=== PATIENT | female | born 1975 | race African-American/Black ===

== ENCOUNTER 2017-01-16 10:50 | Emergency (ER) | payer BC, MEDICAID, OTHER ==
--- NOTE | 2017-01-16 12:04 | ER Document Report ---
ED General - General Mode of Arrival: Ambulatory Information source: Patient TRAVEL OUTSIDE OF THE [place] IN LAST 30 DAYS: No - HPI Patient complains to provider of: "Feeling Funny" Onset: This morning Onset/Duration: Sudden, Persistent <JW PATHAK - Last Filed: 01/16/17 11:58> <TEODORAMITCHEL - Last Filed: 01/16/17 15:31> - General Chief Complaint: General Weakness Stated Complaint: HEADACHE Notes: Patient is a 41-year-old female presenting to the emergency department via EMS for chief complaint "not feeling well". Patient mumbles that she was getting ready for work, took her medications, put on her underwear and socks, and then "began feeling funny." When asked what she meant by feeling funny, she states, "everything began shutting down." Patient has a history of schizophrenia, bipolar disorder, and depression. She states she is being seen at [facility]. ( JW PATHAK) - Related Data Allergies/Adverse Reactions: amoxicillin [Amoxicillin] Allergy (Verified 08/11/16 18:15) Penicillins Allergy (Verified 08/11/16 18:15) Past Medical History - General Information source: Patient, [facility] Records - Social History Smoking Status: Unknown if Ever Smoked Family History: Reviewed & Not Pertinent - Past Medical History Cardiac Medical History: Reports: Hx Hypercholesterolemia Pulmonary Medical History: Reports: Hx Bronchitis Endocrine Medical History: Reports: Hx Hypothyroidism GI Medical History: Reports: Hx Irritable Bowel Musculoskeltal Medical History: Reports Hx Arthritis Psychiatric Medical History: Reports: Hx Bipolar Disorder, Hx Depression, Hx Schizophrenia Past Surgical History: Reports: Hx Tonsillectomy, Hx Tubal Ligation - Immunizations Immunizations up to date: No Hx Diphtheria, Pertussis, Tetanus Vaccination: No <JW PATHAK - Last Filed: 01/16/17 11:58> Review of Systems - Review of Systems Constitutional: See HPI, Other - "everything shutting down" "feel funny" EENT: No symptoms reported Cardiovascular: No symptoms reported Respiratory: No symptoms reported Gastrointestinal: No symptoms reported Genitourinary: No symptoms reported Female Genitourinary: No symptoms reported Musculoskeletal: No symptoms reported Skin: No symptoms reported Hematologic/Lymphatic: No symptoms reported Neurological/Psychological: No symptoms reported -: Yes All other systems reviewed and negative <JW PATHAK - Last Filed: 01/16/17 11:58> Physical Exam - General General appearance: Alert, Other - Trying to speak without opening her mouth. Mumbling. - HEENT Head: Normocephalic, Atraumatic Eyes: Normal Pupils: PERRL - Respiratory Respiratory status: No respiratory distress Chest status: Nontender Breath sounds: Normal Chest palpation: Normal - Cardiovascular Rhythm: Regular Heart sounds: Normal auscultation Murmur: No - Abdominal Inspection: Morbidly Obese Tenderness: Nontender - Back Back: Normal, Nontender - Extremities General upper extremity: Normal inspection, Nontender General lower extremity: Normal inspection, Nontender - Neurological Neuro grossly intact: Yes Cognition: Normal Orientation: AAOx4 [place] Coma Scale Eye Opening: Spontaneous [place] Coma Scale Verbal: Oriented Crist[place] Coma Scale Motor: Obeys Commands Cristo Coma Scale Total: 15 Speech: Normal - Psychological Associated symptoms: Normal affect, Normal mood - Skin Skin Temperature: Warm Skin Moisture: Dry Skin Color: Normal <JW PATHAK - Last Filed: 01/16/17 11:58> Course <JW PATHAK - Last Filed: 01/16/17 11:58> - Laboratory Result Diagrams: 01/16/17 12:30 01/16/17 12:30 <MITCHEL ARAIZA - Last Filed: 01/16/17 15:31> - Re-evaluation Re-evalutation: 01/16/17 15:22 The patient is now sitting up, looks well. She states she thinks she had a stroke because it's difficult to smile. Both sides of the face feel equally weak to her. She does have depression, bipolar disorder, schizophrenia, and her behavior today is consistent with her mental illness. There is nothing on physical exam to suggest it is anything other than a psychiatric issue, lab work is normal. She will be discharged home. (MITCHEL ARAIZA) - Vital Signs Vital signs: Temp Pulse Resp BP Pulse Ox 97.9 F 68 20 125/92 H 95 01/16/17 14:17 01/16/17 14:17 01/16/17 14:17 01/16/17 14:17 01/16/17 14:17 - Laboratory Laboratory results interpreted by me: 01/16/17 01/16/17 11:20 12:30 Est GFR (Non-Af Amer) 52 L Urine Blood LARGE H Discharge <JW PATHAK - Last Filed: 01/16/17 11:58> <MITCHEL ARAIZA - Last Filed: 01/16/17 15:31> - Discharge Clinical Impression: Weakness Condition: Stable Disposition: HOME, SELF-CARE Additional Instructions: Your perceived facial weakness is bilateral which is not possible in the setting of a stroke. Continue your regular medications. Drink plenty of fluids. Follow-up with your doctor if not improving. RETURN TO THE EMERGENCY ROOM IF ANY NEW OR WORSENING SYMPTOMS. Scribe Attestation: 01/16/17 15:31 I personally performed the services described in the documentation, reviewed and edited the documentation which was dictated to the scribe in my presence, and it accurately records my words and actions. (MITCHEL ARAIZA) Scribe Documentation - Scribe Written by Scribrachna:: Jw Pathak 01/16/2017 1159 acting as scribe for :: Teodora <JW PATHAK - Last Filed: 01/16/17 11:58>
[2017-01-16 12:10] LABS: APPEARANCE,URINE CLEAR; BILIRUBIN,URINE NEGATIVE (NEGATIVE); GLUCOSE, URINE NEGATIVE (NEGATIVE); KETONES,URINE NEGATIVE (NEGATIVE); LEUKOCYTE ESTERASE,URINE NEGATIVE (NEGATIVE); NITRITE,URINE NEGATIVE (NEGATIVE); PROTEIN,URINE NEGATIVE (NEGATIVE); URINE SPECIFIC GRAVITY 1.006; UROBILINOGEN,URINE NEGATIVE mg/dL (<2.0)
[2017-01-16 12:45] LABS: ABSOLUTE EOSINOPHILS # (AUTO) 0.1 10^3/uL (0.0-0.6); ABSOLUTE LYMPHOCYTES (AUTO) 1.8 10^3/uL (0.5-4.7); ABSOLUTE MONOCYTES (AUTO) 0.3 10^3/uL (0.1-1.4); ABSOLUTE NEUT (AUTO) 2.1 10^3/uL (1.7-8.2); BASOPHILS % (AUTO) 0.5 % (0-2); EOSINOPHILS % (AUTO) 2.9 % (0-6); HEMATOCRIT 37.6 % (36.0-47.0); HEMOGLOBIN 12.7 g/dL (12.0-15.5); HGB HCT DIFFERENCE 0.5; LYMPHOCYTES % (AUTO) 42.5 % (13-45); MEAN CORPUSCULAR HGB CONC 33.7 g/dL (32.0-36.0); MEAN CORPUSCULAR VOLUME 89 fl (80-97); MONOCYTES % (AUTO) 5.8 % (3-13); RED BLOOD COUNT 4.22 10^6/uL (3.72-5.28); RED CELL DISTRIBUTION WIDTH 13.2 % (11.5-14.0); SEGMENTED NEUTROPHILS % (AUTO) 48.3 % (42-78); WHITE BLOOD COUNT 4.3 10^3/uL (4.0-10.5)
[2017-01-16 13:06] LABS: ALANINE AMINOTRANSFERASE 27 U/L (9-52); ALKALINE PHOSPHATASE 76 U/L (38-126); ANION GAP 12 (5-19); ASPARTATE AMINO TRANSFERASE 29 U/L (14-36); BILIRUBIN,DIRECT 0.2 mg/dL (0.0-0.4); BILIRUBIN,TOTAL 0.6 mg/dL (0.2-1.3); BLOOD UREA NITROGEN 15 mg/dL (7-20); CALCIUM 9.7 mg/dL (8.4-10.2); CARBON DIOXIDE 26 mmol/L (22-30); CHLORIDE 104 mmol/L (98-107); CREATININE RESULT 1.15 mg/dL (0.52-1.25); GLUCOSE 84 mg/dL (75-110); POTASSIUM 4.4 mmol/L (3.6-5.0); SODIUM 142.3 mmol/L (137-145); TOTAL PROTEIN 7.2 g/dL (6.3-8.2)
[2017-01-16 15:42] VITALS: BP 132/75
== END 2017-01-16 15:43 | disposition home or self-care (01) ==
LOC: ER 10:50
DX: R53.1 Weakness (principal); R51 Headache; F20.9 Schizophrenia, unspecified; F31.9 Bipolar disorder, unspecified; F32.9 Major depressive disorder, single episode, unspecified
CPT/HCPCS: 36415; 80053; 81001; 84703; 85025; 99285

== ENCOUNTER 2017-06-24 09:19 | Emergency (ER) | payer BC, MEDICAID, OTHER ==
[2017-06-24 09:27] VITALS: BP 130/95
--- NOTE | 2017-06-24 09:56 | ER Document Report ---
ED Extremity Problem, Lower - General Chief Complaint: Knee Pain Stated Complaint: LEFT KNEE PAIN Time Seen by Provider: 06/24/17 09:34 Notes: 41 yo female c/o left knee pain x 1 1/2 weeks. . no trauma. knee started hurting while she was working. works in food industry. pt was evaluated at urgent care last week for same has ortho appointment 07/01/17 but pt doesnt feel like she can wait that long. difficulty to walk, using cane TRAVEL OUTSIDE OF THE [place] IN LAST 30 DAYS: No - HPI Patient complains to provider of: Pain Location: Knee - left Occurred: Last week Onset/Duration: Gradual, Persistent Quality of pain: Sharp Recent injury: No Exacerbated by: Movement, Walking Relieved by: Nothing - Related Data Allergies/Adverse Reactions: amoxicillin [Amoxicillin] Allergy (Verified 06/24/17 09:28) Penicillins Allergy (Verified 06/24/17 09:28) Past Medical History - General Information source: Patient - Social History Smoking Status: Never Smoker Frequency of alcohol use: None Drug Abuse: None Lives with: Family Family History: Reviewed & Not Pertinent Patient has suicidal ideation: No Patient has homicidal ideation: No - Past Medical History Cardiac Medical History: Reports: Hx Hypercholesterolemia Pulmonary Medical History: Reports: Hx Bronchitis Endocrine Medical History: Reports: Hx Hypothyroidism Renal/ Medical History: Denies: Hx Peritoneal Dialysis GI Medical History: Reports: Hx Irritable Bowel Musculoskeltal Medical History: Reports Hx Arthritis Psychiatric Medical History: Reports: Hx Bipolar Disorder, Hx Depression, Hx Schizophrenia Past Surgical History: Reports: Hx Tonsillectomy, Hx Tubal Ligation - Immunizations Immunizations up to date: No Hx Diphtheria, Pertussis, Tetanus Vaccination: No Review of Systems - Review of Systems Constitutional: No symptoms reported EENT: No symptoms reported Cardiovascular: No symptoms reported Respiratory: No symptoms reported Gastrointestinal: No symptoms reported Genitourinary: No symptoms reported Female Genitourinary: No symptoms reported Musculoskeletal: See HPI Skin: No symptoms reported Hematologic/Lymphatic: No symptoms reported Neurological/Psychological: No symptoms reported Physical Exam - Vital signs Vitals: Temp Pulse Resp BP Pulse Ox 97.6 F 81 22 H 130/95 H 98 06/24/17 09:26 06/24/17 09:26 06/24/17 09:26 06/24/17 09:26 09/06/17 09:26 Interpretation: Normal - General General appearance: Appears well, Alert In distress: None Notes: morbidly obese - HEENT Head: Normocephalic, Atraumatic Eyes: Normal Pupils: PERRL - Respiratory Respiratory status: No respiratory distress Chest status: Nontender Breath sounds: Normal Chest palpation: Normal - Cardiovascular Rhythm: Regular Heart sounds: Normal auscultation Murmur: No - Abdominal Inspection: Normal Distension: No distension Bowel sounds: Normal Tenderness: Nontender Organomegaly: No organomegaly - Back Back: Normal, Nontender - Extremities General upper extremity: Normal inspection, Nontender, Normal color, Normal ROM , Normal temperature Knee: Tender - infrapatellar tenderness, Tender joint line Calf: Normal - Neurological Neuro grossly intact: Yes Cognition: Normal Orientation: AAOx4 [place] Coma Scale Eye Opening: Spontaneous [place] Coma Scale Verbal: Oriented [place] Coma Scale Motor: Obeys Commands Crist[place] Coma Scale Total: 15 Speech: Normal Motor strength normal: LUE, RUE, LLE, RLE Sensory: Normal - Psychological Associated symptoms: Normal affect, Normal mood - Skin Skin Temperature: Warm Skin Moisture: Dry Skin Color: Normal Course - Vital Signs Vital signs: Temp Pulse Resp BP Pulse Ox 97.6 F 81 22 H 130/95 H 98 06/24/17 09:26 06/24/17 09:26 06/24/17 09:26 06/24/17 09:26 06/24/17 09:26 Discharge - Discharge Clinical Impression: Left knee pain Qualifiers: Chronicity: acute Qualified Code(s): M25.562 - Pain in left knee Condition: Stable Disposition: HOME, SELF-CARE Instructions: Ice & Elevation ([facility]), Suspected Internal Knee Injury ([facility]), Ultram ([facility]) Additional Instructions: Follow up with [facility] as scheduled Appointment made for 06/29/17 @ 10:15 Ultram for discomfort, Motrin for inflammation rest, ice, elevate knee as much as possible Prescriptions: Ibuprofen [Motrin 800 Mg Tablet] 800 mg PO Q6H #20 tablet Tramadol HCl [Ultram 50 mg Tablet] 50 mg PO ASDIR PRN #20 tablet PRN Reason:
== END 2017-06-24 10:11 | disposition home or self-care (01) ==
LOC: ER 09:19
DX: M25.562 Pain in left knee (principal)
CPT/HCPCS: 99283

== ENCOUNTER 2017-11-11 12:59 | Emergency (ER) | payer BC ==
--- NOTE | 2017-11-11 13:47 | ER Document Report ---
ED Medical Screen (RME) - General Chief Complaint: Suicidal Ideation Stated Complaint: SUICIDAL IDEATION Time Seen by Provider: 11/11/17 13:41 Mode of Arrival: Ambulatory Information source: Patient Notes: 42 yo female c/o that the male that she hears and doesn't see won't shut up. " He is too real", he tells me that he knows everything about me and that he wants my soul. Depakote 500mg am, 1000mg pm. Got monthly Invega shot on thursday at [facility] to try and control him. New Therapist at [facility], seen months ago, scheduled to see therapist next month. I started to cut my left wrist with a knife but stops because it was burning. Doesn't feel like she wants to hurt herself anymore at this time. Was hoping to bleed enough so she wouldn't have to go through with this. She was alone in her room for a while this am. Tried to slit wrists while she was in highschool. Works at [employer] at [employer]. Superficial scratch volar left wrist. Psycho affective dx. TRAVEL OUTSIDE OF THE [place] IN LAST 30 DAYS: No - Related Data Allergies/Adverse Reactions: amoxicillin [Amoxicillin] Allergy (Verified 06/24/17 09:28) Penicillins Allergy (Verified 06/24/17 09:28) Past Medical History - Past Medical History Cardiac Medical History: Reports: Hx Hypercholesterolemia Pulmonary Medical History: Reports: Hx Bronchitis Endocrine Medical History: Reports: Hx Hypothyroidism Renal/ Medical History: Denies: Hx Peritoneal Dialysis GI Medical History: Reports: Hx Irritable Bowel Musculoskeltal Medical History: Reports Hx Arthritis Psychiatric Medical History: Reports: Hx Bipolar Disorder, Hx Depression, Hx Schizophrenia Past Surgical History: Reports: Hx Tonsillectomy, Hx Tubal Ligation - Immunizations Immunizations up to date: No Hx Diphtheria, Pertussis, Tetanus Vaccination: No Physical Exam - Vital signs Vitals: Temp Pulse Resp BP Pulse Ox 98.9 F 90 16 133/90 H 100 11/11/17 13:11 11/11/17 13:11 11/11/17 13:11 11/11/17 13:11 11/11/17 13:11 Course - Vital Signs Vital signs: Temp Pulse Resp BP Pulse Ox 98.9 F 90 16 133/90 H 100 11/11/17 13:11 11/11/17 13:11 11/11/17 13:11 11/11/17 13:11 11/11/17 13:11
--- NOTE | 2017-11-11 14:23 | ER Document Report ---
ED General - General Chief Complaint: Suicidal Ideation Stated Complaint: SUICIDAL IDEATION Time Seen by Provider: 11/11/17 13:41 Mode of Arrival: Ambulatory Information source: Patient Notes: Patient presents stating that she has plans of wanting to hurt herself and that she attempted to cut her left wrist today. She also states she has been hearing some voices telling her that she is not worth anything. Stress makes this worse. It is better without stress. There is no radiation symptoms. Symptoms been intermittent. Patient has had multiple visits for similar problems in the past. TRAVEL OUTSIDE OF THE [place] IN LAST 30 DAYS: No - Related Data Allergies/Adverse Reactions: amoxicillin [Amoxicillin] Allergy (Verified 06/24/17 09:28) Penicillins Allergy (Verified 06/24/17 09:28) Past Medical History - General Information source: Patient - Social History Smoking Status: Current Every Day Smoker Frequency of alcohol use: Rare Drug Abuse: Marijuana Family History: Reviewed & Not Pertinent Patient has suicidal ideation: Yes Patient has homicidal ideation: No - Past Medical History Cardiac Medical History: Reports: Hx Hypercholesterolemia Pulmonary Medical History: Reports: Hx Bronchitis Endocrine Medical History: Reports: Hx Hypothyroidism Renal/ Medical History: Denies: Hx Peritoneal Dialysis GI Medical History: Reports: Hx Irritable Bowel Musculoskeltal Medical History: Reports Hx Arthritis Psychiatric Medical History: Reports: Hx Bipolar Disorder, Hx Depression, Hx Schizophrenia Past Surgical History: Reports: Hx Tonsillectomy, Hx Tubal Ligation - Immunizations Immunizations up to date: No Hx Diphtheria, Pertussis, Tetanus Vaccination: No Review of Systems - Review of Systems Constitutional: denies: Chills, Fever Cardiovascular: denies: Chest pain, Palpitations Respiratory: denies: Cough, Short of breath Physical Exam - Vital signs Vitals: Temp Pulse Resp BP Pulse Ox 98.9 F 90 16 133/90 H 100 11/11/17 13:11 11/11/17 13:11 11/11/17 13:11 11/11/17 13:11 11/11/17 13:11 Interpretation: Hypertensive - General General appearance: Appears well, Alert In distress: None - HEENT Head: Normocephalic, Atraumatic Eyes: Normal Pupils: PERRL - Respiratory Respiratory status: No respiratory distress Chest status: Nontender Breath sounds: Normal Chest palpation: Normal - Cardiovascular Rhythm: Regular Heart sounds: Normal auscultation Murmur: No - Extremities General upper extremity: Nontender. No: Edema - Patient's left wrist has a very mild abrasion on the volar aspect. General lower extremity: Normal inspection, Nontender, Normal ROM. No: Edema - Psychological Associated symptoms: Depressed, Flat affect - Skin Skin Temperature: Warm Skin Moisture: Dry Course - Re-evaluation Re-evalutation: 11/11/17 14:22 Patient was seen by Dr. Serrano from psychiatry. Dr. Serrano states that she does not feel that patient is suicidal or homicidal. She does not feel that the patient is a threat to herself. She feels the patient can be safely discharged home. After my assessment I agree with Dr. Serrano assessment I do not feel that the patient is a threat to herself or others. states that he is very comfortable taking the patient home. - Vital Signs Vital signs: Temp Pulse Resp BP Pulse Ox 98.9 F 90 16 133/90 H 100 11/11/17 13:11 11/11/17 13:11 11/11/17 13:11 11/11/17 13:11 11/11/17 13:11 Discharge - Discharge Clinical Impression: Depression Qualifiers: Depression Type: unspecified Qualified Code(s): F32.9 - Major depressive disorder, single episode, unspecified Condition: Stable Disposition: HOME, SELF-CARE Instructions: Depression ([facility]) Additional Instructions: please follow up with [facility] as soon as possible
[2017-11-11 14:28] VITALS: BP 128/85
== END 2017-11-11 14:24 | disposition home or self-care (01) ==
LOC: ER 12:59
DX: F32.9 Major depressive disorder, single episode, unspecified (principal); S61.512A Laceration without foreign body of left wrist, initial encounter; R44.0 Auditory hallucinations; F17.200 Nicotine dependence, unspecified, uncomplicated; X78.9XXA Intentional self-harm by unspecified sharp object, initial encounter
CPT/HCPCS: 99285

== ENCOUNTER 2018-12-29 09:58 | Emergency (ER) | payer BC, OTHER ==
--- NOTE | 2018-12-29 10:27 | ER Document Report ---
ED Medical Screen (RME) - General Chief Complaint: Psych Problem Stated Complaint: PSYCH EVAL Primary Care Provider: LAMIN BRADY MD [Primary Care Provider] - Follow up as needed TRAVEL OUTSIDE OF THE [place] IN LAST 30 DAYS: No - HPI Notes: 12/29/18 10:26 Patient has been of her psychiatric medication for the past 6 months. According to the this morning she woke up crying and has not stopped crying. Patient will not talk to me when I attempted to find out what is the problem. She is just tearful. Her states she has no suicidal or homicidal. - Related Data Allergies/Adverse Reactions: amoxicillin [Amoxicillin] Allergy (Verified 12/29/18 10:01) Penicillins Allergy (Verified 12/29/18 10:01) Past Medical History - Past Medical History Cardiac Medical History: Reports: Hx Hypercholesterolemia Pulmonary Medical History: Reports: Hx Bronchitis Endocrine Medical History: Reports: Hx Hypothyroidism Renal/ Medical History: Denies: Hx Peritoneal Dialysis GI Medical History: Reports: Hx Irritable Bowel Musculoskeltal Medical History: Reports Hx Arthritis Psychiatric Medical History: Reports: Hx Bipolar Disorder, Hx Depression, Hx Schizophrenia Past Surgical History: Reports: Hx Tonsillectomy, Hx Tubal Ligation - Immunizations Immunizations up to date: No Hx Diphtheria, Pertussis, Tetanus Vaccination: No Physical Exam - Vital signs Vitals: Temp Pulse Resp BP Pulse Ox 98.1 F 94 19 126/98 H 100 12/29/18 10:05 12/29/18 10:05 12/29/18 10:05 12/29/18 10:05 12/29/18 10:05 Course - Vital Signs Vital signs: Temp Pulse Resp BP Pulse Ox 98.1 F 94 19 126/98 H 100 12/29/18 10:05 12/29/18 10:05 12/29/18 10:05 12/29/18 10:05 12/29/18 10:05 Doctor's Discharge - Discharge Referrals: LAMIN BRADY MD [Primary Care Provider] - Follow up as needed
[2018-12-29 12:33] LABS: ABSOLUTE BASOPHILS # (AUTO) 0.1 10^3/uL (0.0-0.2); ABSOLUTE EOSINOPHILS # (AUTO) 0.4 10^3/uL (0.0-0.6); ABSOLUTE LYMPHOCYTES (AUTO) 1.8 10^3/uL (0.5-4.7); ABSOLUTE MONOCYTES (AUTO) 0.3 10^3/uL (0.1-1.4); ABSOLUTE NEUT (AUTO) 2.8 10^3/uL (1.7-8.2); HEMOGLOBIN 14.1 g/dL (12.0-15.5); LYMPHOCYTES % (AUTO) 33.3 % (13-45); MEAN CORPUSCULAR HEMOGLOBIN 31.1 pg (27.0-33.4); MEAN CORPUSCULAR HGB CONC 34.4 g/dL (32.0-36.0); MEAN CORPUSCULAR VOLUME 90 fl (80-97); PLATELET COUNT 198 10^3/uL (150-450); RED BLOOD COUNT 4.54 10^6/uL (3.72-5.28); RED CELL DISTRIBUTION WIDTH 14.6 % (11.5-14.0); SEGMENTED NEUTROPHILS % (AUTO) 52.7 % (42-78); TOTAL CELLS COUNTED % (AUTO) 100 %; WHITE BLOOD COUNT 5.4 10^3/uL (4.0-10.5)
[2018-12-29 12:53] LABS: ALANINE AMINOTRANSFERASE 27 U/L (9-52); ALBUMIN 4.4 g/dL (3.5-5.0); ALKALINE PHOSPHATASE 96 U/L (38-126); ANION GAP 11 (5-19); ASPARTATE AMINO TRANSFERASE 26 U/L (14-36); BILIRUBIN,DIRECT 0.4 mg/dL (0.0-0.4); BILIRUBIN,TOTAL 0.7 mg/dL (0.2-1.3); BLOOD UREA NITROGEN 10 mg/dL (7-20); CALCIUM 9.8 mg/dL (8.4-10.2); CARBON DIOXIDE 24 mmol/L (22-30); CHLORIDE 104 mmol/L (98-107); GLUCOSE 99 mg/dL (75-110); POTASSIUM 4.1 mmol/L (3.6-5.0); SODIUM 138.9 mmol/L (137-145); TOTAL PROTEIN 7.5 g/dL (6.3-8.2)
[2018-12-29 12:58] LABS: ACETAMINOPHEN < 10 ug/mL (10-30); ALCOHOL < 10 mg/dL (NONE DETECTED); SALICYLATE < 1.0 mg/dL (2.0-20.0)
--- NOTE | 2018-12-29 13:16 | EKG REPORT ---
SEVERITY:- ABNORMAL ECG - SINUS RHYTHM BORDERLINE R WAVE PROGRESSION, ANTERIOR LEADS ST ELEVATION NONSPECIFIC, UNCHANGED FROM BEFORE. : Confirmed by: Lan Dunlap MD 29-Dec-2018 13:16:15
[2018-12-29 13:29] LABS: APPEARANCE,URINE SLIGHTLY-CLOUDY; BILIRUBIN,URINE NEGATIVE (NEGATIVE); COLOR,URINE YELLOW; GLUCOSE, URINE NEGATIVE (NEGATIVE); KETONES,URINE NEGATIVE (NEGATIVE); LEUKOCYTE ESTERASE,URINE NEGATIVE (NEGATIVE); NITRITE,URINE NEGATIVE (NEGATIVE); PROTEIN,URINE NEGATIVE (NEGATIVE); URINE SPECIFIC GRAVITY 1.013; UROBILINOGEN,URINE NEGATIVE mg/dL (<2.0)
[2018-12-29 13:52] LABS: URINE AMPHETAMINES SCREEN NEGATIVE; URINE BARBITURATES SCREEN NEGATIVE; URINE BENZODIAZEPINES SCREEN NEGATIVE; URINE COCAINE SCREEN NEGATIVE; URINE MARIJUANA (THC) SCREEN NEGATIVE; URINE METHADONE SCREEN NEGATIVE; URINE PHENCYCLIDINE SCREEN NEGATIVE
--- NOTE | 2018-12-29 13:52 | ER Document Report ---
ED General <YAQUELIN ALEMAN - Last Filed: 12/29/18 14:05> - General TRAVEL OUTSIDE OF THE [place] IN LAST 30 DAYS: No - HPI Patient complains to provider of: Psych evaluation <CAROLA STROUD - Last Filed: 12/29/18 14:50> - General Chief Complaint: Psych Problem Stated Complaint: PSYCH EVAL Time Seen by Provider: 12/29/18 10:46 Primary Care Provider: [facility] [Provider Group] - Follow up as needed [facility] [Provider Group] - Follow up as needed LAMIN BRADY MD [ACTIVE STAFF] - Follow up as needed - HPI Notes: Patient coming in for evaluation of psych evaluation. Patient otherwise nonverbal with me only holding her head down. According to the nursing staff patient states she has had ideation and hallucinations for the last 6 months. Patient otherwise is to be no obvious distress. My [employer] review (CAROLA STROUD) - Related Data Allergies/Adverse Reactions: amoxicillin [Amoxicillin] Allergy (Verified 12/29/18 10:01) Penicillins Allergy (Verified 12/29/18 10:01) Past Medical History - Social History Smoking Status: Unknown if Ever Smoked Family History: Reviewed & Not Pertinent Patient has suicidal ideation: Yes Patient has homicidal ideation: No - Past Medical History Cardiac Medical History: Reports: Hx Hypercholesterolemia Pulmonary Medical History: Reports: Hx Bronchitis Endocrine Medical History: Reports: Hx Hypothyroidism Renal/ Medical History: Denies: Hx Peritoneal Dialysis GI Medical History: Reports: Hx Irritable Bowel Musculoskeletal Medical History: Reports Hx Arthritis Psychiatric Medical History: Reports: Hx Bipolar Disorder, Hx Depression, Hx Schizophrenia Past Surgical History: Reports: Hx Tonsillectomy, Hx Tubal Ligation - Immunizations Immunizations up to date: No Hx Diphtheria, Pertussis, Tetanus Vaccination: No <CAROLA STROUD - Last Filed: 12/29/18 14:50> Review of Systems - Review of Systems Constitutional: No symptoms reported EENT: No symptoms reported Cardiovascular: No symptoms reported Respiratory: No symptoms reported Gastrointestinal: No symptoms reported Genitourinary: No symptoms reported Female Genitourinary: No symptoms reported Musculoskeletal: No symptoms reported Skin: No symptoms reported Hematologic/Lymphatic: No symptoms reported Neurological/Psychological: Suicidal ideation -: Yes All other systems reviewed and negative <CAROLA STROUD - Last Filed: 12/29/18 14:50> Physical Exam - Vital signs Interpretation: Normal - General General appearance: Appears well, Alert - HEENT Head: Normocephalic, Atraumatic Eyes: Normal Pupils: PERRL - Respiratory Respiratory status: No respiratory distress Chest status: Nontender Breath sounds: Normal Chest palpation: Normal - Cardiovascular Rhythm: Regular Heart sounds: Normal auscultation Murmur: No - Abdominal Inspection: Normal, Obese Distension: No distension Bowel sounds: Normal Tenderness: Nontender Organomegaly: No organomegaly - Back Back: Normal, Nontender - Extremities General upper extremity: Normal inspection, Nontender, Normal color, Normal ROM, Normal temperature General lower extremity: Normal inspection, Nontender, Normal color, Normal ROM, Normal temperature, Normal weight bearing. No: Shantel's sign - Neurological Neuro grossly intact: Yes Cognition: Normal Orientation: AAOx4 Cristo Coma Scale Eye Opening: Spontaneous Crisot Coma Scale Verbal: Oriented Cristo Coma Scale Motor: Obeys Commands Sutherland Coma Scale Total: 15 Speech: Normal Motor strength normal: LUE, RUE, LLE, RLE Sensory: Normal - Psychological Associated symptoms: Normal affect, Normal mood - Skin Skin Temperature: Warm Skin Moisture: Dry Skin Color: Normal <CAROLA STROUD - Last Filed: 12/29/18 14:50> - Vital signs Vitals: Temp Pulse Resp BP Pulse Ox 98.1 F 94 19 126/98 H 100 12/29/18 10:05 12/29/18 10:05 12/29/18 10:05 12/29/18 10:05 12/29/18 10:05 Course - Laboratory Result Diagrams: 12/29/18 12:18 12/29/18 12:18 <YAQUELIN ALEMAN - Last Filed: 12/29/18 14:05> - Laboratory Result Diagrams: 12/29/18 12:18 12/29/18 12:18 <CAROLA STROUD - Last Filed: 12/29/18 14:50> - Re-evaluation Re-evalutation: 12/29/18 14:50 Agree with disposition by our psychiatric team to be discharged. Patient with chronic issues and noncompliance with medications no acute issues at this time. Patient discharged home. (CAROLA STROUD) - Vital Signs Vital signs: Temp Pulse Resp BP Pulse Ox 98.3 F 77 16 120/74 99 12/29/18 14:10 12/29/18 14:10 12/29/18 14:10 12/29/18 14:10 12/29/18 14:10 - Laboratory Laboratory results interpreted by me: 12/29/18 12/29/18 12/29/18 12:18 12:18 12:18 RDW 14.6 H Eosinophils % 7.0 H Est GFR (Non-Af Amer) 57 L TSH 5.21 H Salicylates < 1.0 L Acetaminophen < 10 L Valproic Acid < 10.0 L Discharge <LOVESHELLIYAQUELIN - Last Filed: 12/29/18 14:05> <CAROLA STROUD - Last Filed: 12/29/18 14:50> - Discharge Clinical Impression: Non compliance w medication regimen Condition: Stable Disposition: HOME, SELF-CARE Additional Instructions: You have been evaluated and assessed at [facility] Emergency Department by both the medical and behavioral health teams after presenting for suicidal ideation and medication non-compliance and are now deemed appropriate for discharge. While in the ED, you received an initial medical screening, lab work, EKG, medications, direct staff observation, clinical evaluation, physician assessment, and outpatient resources. You were cleared from both services and record review revealed a history of similar visits. Mobile crisis resources were provided to you for when these situations arise. You are encouraged to develop positive coping skills through outpatient counseling and to follow up with your outpatient mental health provider at [facility] today for a walk in appointment and maintain compliance with your prescribed medication. DEPRESSION: Your evaluation reveals that you have mental depression. While symptoms may be vague, they often include disturbance of sleep, fatigue, loss of appetite, and general loss of interest in life. While depression may be a side effect of drugs, or a reaction to a major change in your life, many cases have no known cause. If depression is acute, and related to a major loss in your life, you can expect it to clear completely with time. If you have been depressed a long time, are prone to repeated bouts of depression or low mood, or have been thinking of suicide, get help. Depression can be treated with anti-depressant medication and counselling. Long-term depression will often take a few weeks to clear, even with appropriate medication. Follow-up care is important. SUICIDAL IDEATION: Suicidal ideation is a common medical term for thoughts about suicide, which may be as detailed as a formulated plan, without the suicidal act itself. Although most people who undergo suicidal ideation do not commit suicide, some go on to make suicide attempts. The range of suicidal ideation varies greatly from fleeting to detailed planning, role playing, and unsuccessful attempts. While thoughts about suicide are common, most people do not carry out serious actions to commit suicide. Based upon your evaluation and discussion with you, we do not believe you are currently at risk to act upon your thoughts of suicide. You have agreed to return to the Emergency Department, at any time, if you feel inclined to act upon your suicidal thoughts. FOLLOW-UP CARE: If you have been referred to a physician for follow-up care, call the [facility] office for an appointment as you were instructed or within the next two days. If you experience worsening or a significant change in your symptoms, notify the physician immediately or return to the Emergency Department at any time for re-evaluation. Referrals: LAMIN BRADY MD [ACTIVE STAFF] - Follow up as needed [facility] [Provider Group] - Follow up as needed [facility] [Provider Group] - Follow up as needed
[2018-12-29 14:12] VITALS: BP 120/74
--- NOTE | 2018-12-31 18:14 | PSYCHOLOGICAL NOTE ---
Psych Note - Psych Note Date seen by psych provider: 12/29/18 Time seen by psych provider: 11:00 Psych Note: Reason for consult:SI, HI, AV/H Contact Permissions:Mother and at bedside Patient is a 43 year old female presenting to the ED with concerns of sx break through i.e. SI, HI and AV/H for schizophrenia. Chart review shows prior psych visits going back to 2011 for Schizoaffective Disorder and SI. Patient has a hx of medication non-compliance. She reports that she has been off her medication for 6 months and "self-medicated". Though she endorses AV/H with "none now", her primary concern is SI she has been "fighting for the last 6 months. Protective factors are "responsibilities, I've got two kids a , I drive, and a job. I don't want to lose my job. I like it it makes me feel normal/I get to fix myself up". 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 She relays today's trigger for seeking help is anxiety for her son who is in the and [place]. She hasn't heard from him today. Patient is alert and oriented x 4. Mood is "poor" with labile affect aeb she rocks back and forth and keeps her eyes closed when Clinician is not looking at her but opens her eyes and maintains eye contact with her mother, stops rocking and brightens when discussing her job. Patient endorses passive SI "I've been fighting it for the last 6 months" and denies HI. She endorses AV/H but does not appear to be responding to internal stimuli aeb conversational speech was WNL for rate, tone, and prosody, eye contact was maintained when patient chose to open her eyes, thought processes were linear, organized, and rational and attention/concentration was WNL. No delusions were noted. Intellectual abilities were estimated within the average range. Insight, judgment, and impulse control were impaired. Diagnosis: 295.70 (F25.1) Schizoaffective Disorder, per hx Medication recommendations as per psychiatric provider, Dr. Rivera are as follows: No medication recommendations at this time Impression/Plan: Patient is psychiatrically clear from acute psychiatric services and recommended to discharge into the care of her mother and . Patient is a 43 yo female with Schizoaffective Disorder who has increased anxiety today related to her son's deployment and has been medication non-compliant for some time. Plan is to follow up today as a walk in patient at [facility] for medication management. [facility] confirmed that patient was a prior patient there and alerted them that patient would be presenting there today. Patient, , and mother verbalized their endorsement and follow through with the plan. Patient received psychoeducation on the importance of treatment compliance and is recommended to take her medication as prescribed. and mother will provide additional monitoring and support. The family received psychoeducation and contact information for [facility]. Consulted Dr. Serrano in the care and treatment of this patient and ED physician who is in agreement with disposition and recommendation.
== END 2018-12-29 14:24 | disposition home or self-care (01) ==
LOC: ER 09:58
DX: Z91.14 Patient's other noncompliance with medication regimen (principal); F25.9 Schizoaffective disorder, unspecified; R45.851 Suicidal ideations; Z88.0 Allergy status to penicillin
CPT/HCPCS: 36415; 80053; 80164; 80307; 81001; 81025; 84443; 85025; 93005; 93010; 99284

== ENCOUNTER → 2019-02-02 | Outpatient (CLI) | payer OTHER ==
[2019-02-02 12:29] LABS: ABSOLUTE EOSINOPHILS # (AUTO) 0.1 10^3/uL (0.0-0.6); ABSOLUTE LYMPHOCYTES (AUTO) 1.5 10^3/uL (0.5-4.7); ABSOLUTE MONOCYTES (AUTO) 0.3 10^3/uL (0.1-1.4); ABSOLUTE NEUT (AUTO) 1.7 10^3/uL (1.7-8.2); BASOPHILS % (AUTO) 0.3 % (0-2); EOSINOPHILS % (AUTO) 3.4 % (0-6); HEMATOCRIT 36.5 % (36.0-47.0); HEMOGLOBIN 12.2 g/dL (12.0-15.5); LYMPHOCYTES % (AUTO) 41.8 % (13-45); MEAN CORPUSCULAR HEMOGLOBIN 30.2 pg (27.0-33.4); MEAN CORPUSCULAR HGB CONC 33.3 g/dL (32.0-36.0); MEAN CORPUSCULAR VOLUME 91 fl (80-97); MONOCYTES % (AUTO) 7.4 % (3-13); PLATELET COUNT 169 10^3/uL (150-450); RED BLOOD COUNT 4.03 10^6/uL (3.72-5.28); SEGMENTED NEUTROPHILS % (AUTO) 47.1 % (42-78); TOTAL CELLS COUNTED % (AUTO) 100 %; WHITE BLOOD COUNT 3.6 10^3/uL (4.0-10.5)
[2019-02-02 13:05] LABS: ALANINE AMINOTRANSFERASE 36 U/L (9-52); ALBUMIN 3.8 g/dL (3.5-5.0); ALKALINE PHOSPHATASE 72 U/L (38-126); ANION GAP 9 (5-19); ASPARTATE AMINO TRANSFERASE 35 U/L (14-36); BILIRUBIN,DIRECT 0.3 mg/dL (0.0-0.4); BILIRUBIN,TOTAL 0.7 mg/dL (0.2-1.3); BLOOD UREA NITROGEN 13 mg/dL (7-20); CALCIUM 9.2 mg/dL (8.4-10.2); CARBON DIOXIDE 26 mmol/L (22-30); CHLORIDE 105 mmol/L (98-107); CHOLESTEROL 221.18 mg/dL (0-200); GLUCOSE 72 mg/dL (75-110); POTASSIUM 4.1 mmol/L (3.6-5.0); SODIUM 140.4 mmol/L (137-145); TOTAL PROTEIN 6.9 g/dL (6.3-8.2); TRIGLYCERIDES 86 mg/dL (<150)
[2019-02-02 13:27] LABS: DIRECT LDL 163 mg/dL (<100)
== END ==
LOC: OD 10:54
PROVIDERS: ATTEND Psychiatry & Neurology Psychiatry
DX: F25.0 Schizoaffective disorder, bipolar type (principal)
CPT/HCPCS: 36415; 80053; 80061; 84443; 85025

== ENCOUNTER 2019-04-08 15:54 | Emergency (ER) | payer OTHER ==
--- NOTE | 2019-04-08 16:21 | ER Document Report ---
ED Medical Screen (RME) - General Chief Complaint: Suicidal Ideation Stated Complaint: PSYCH EVAL Time Seen by Provider: 04/08/19 16:16 Primary Care Provider: CHAPO FORD MD [Primary Care Provider] - Follow up as needed Mode of Arrival: Ambulatory Information source: Patient Notes: Patient presents complaining of suicidal ideation. Patient reports she has a hi story of schizoaffective disorder and has been compliant with her medications. Patient also reports auditory hallucinations. I have greeted and performed a rapid initial assessment of this patient. A comprehensive ED assessment and evaluation of the patient, analysis of test results and completion of the medical decision making process will be conducted by additional ED providers. TRAVEL OUTSIDE OF THE [place] IN LAST 30 DAYS: No - Related Data Allergies/Adverse Reactions: amoxicillin [Amoxicillin] Allergy (Verified 12/29/18 10:01) Penicillins Allergy (Verified 12/29/18 10:01) Past Medical History - Past Medical History Cardiac Medical History: Reports: Hx Hypercholesterolemia Pulmonary Medical History: Reports: Hx Bronchitis Endocrine Medical History: Reports: Hx Hypothyroidism Renal/ Medical History: Denies: Hx Peritoneal Dialysis GI Medical History: Reports: Hx Irritable Bowel Musculoskeltal Medical History: Reports Hx Arthritis Psychiatric Medical History: Reports: Hx Bipolar Disorder, Hx Depression, Hx Schizophrenia Past Surgical History: Reports: Hx Tonsillectomy, Hx Tubal Ligation - Immunizations Immunizations up to date: No Hx Diphtheria, Pertussis, Tetanus Vaccination: No Physical Exam - Vital signs Vitals: Temp Pulse Resp BP Pulse Ox 99 F 103 H 20 148/94 H 97 04/08/19 16:02 04/08/19 16:02 04/08/19 16:02 04/08/19 16:02 04/08/19 16:02 - Psychological Associated symptoms: Auditory hallucinations, Flat affect Course - Vital Signs Vital signs: Temp Pulse Resp BP Pulse Ox 99 F 103 H 20 148/94 H 97 04/08/19 16:02 04/08/19 16:02 04/08/19 16:02 04/08/19 16:02 04/08/19 16:02 Doctor's Discharge - Discharge Referrals: CHAPO FORD MD [Primary Care Provider] - Follow up as needed
[2019-04-08 18:29] LABS: ABSOLUTE EOSINOPHILS # (AUTO) 0.2 10^3/uL (0.0-0.6); ABSOLUTE LYMPHOCYTES (AUTO) 2.2 10^3/uL (0.5-4.7); ABSOLUTE MONOCYTES (AUTO) 0.5 10^3/uL (0.1-1.4); BASOPHILS % (AUTO) 0.2 % (0-2); EOSINOPHILS % (AUTO) 2.9 % (0-6); HEMATOCRIT 38.5 % (36.0-47.0); LYMPHOCYTES % (AUTO) 37.8 % (13-45); MEAN CORPUSCULAR HEMOGLOBIN 30.5 pg (27.0-33.4); MEAN CORPUSCULAR HGB CONC 33.7 g/dL (32.0-36.0); MEAN CORPUSCULAR VOLUME 91 fl (80-97); MONOCYTES % (AUTO) 7.8 % (3-13); PLATELET COUNT 220 10^3/uL (150-450); RED BLOOD COUNT 4.25 10^6/uL (3.72-5.28); RED CELL DISTRIBUTION WIDTH 13.9 % (11.5-14.0); SEGMENTED NEUTROPHILS % (AUTO) 51.3 % (42-78); TOTAL CELLS COUNTED % (AUTO) 100 %; WHITE BLOOD COUNT 5.9 10^3/uL (4.0-10.5)
[2019-04-08 18:32] LABS: ACETAMINOPHEN < 10 ug/mL (10-30); ALANINE AMINOTRANSFERASE 38 U/L (9-52); ALBUMIN 4.3 g/dL (3.5-5.0); ALCOHOL < 10 mg/dL (NONE DETECTED); ALKALINE PHOSPHATASE 83 U/L (38-126); ANION GAP 7 (5-19); ASPARTATE AMINO TRANSFERASE 34 U/L (14-36); BILIRUBIN,DIRECT 0.2 mg/dL (0.0-0.4); BILIRUBIN,TOTAL 0.4 mg/dL (0.2-1.3); BLOOD UREA NITROGEN 8 mg/dL (7-20); CALCIUM 9.4 mg/dL (8.4-10.2); CARBON DIOXIDE 28 mmol/L (22-30); CHLORIDE 104 mmol/L (98-107); GLUCOSE 95 mg/dL (75-110); POTASSIUM 4.2 mmol/L (3.6-5.0); SALICYLATE < 1.0 mg/dL (2.0-20.0); SODIUM 139.3 mmol/L (137-145); TOTAL PROTEIN 7.5 g/dL (6.3-8.2)
[2019-04-08 18:56] LABS: APPEARANCE,URINE SLIGHTLY-CLOUDY; BILIRUBIN,URINE NEGATIVE (NEGATIVE); COLOR,URINE YELLOW; GLUCOSE, URINE NEGATIVE (NEGATIVE); KETONES,URINE NEGATIVE (NEGATIVE); LEUKOCYTE ESTERASE,URINE NEGATIVE (NEGATIVE); NITRITE,URINE NEGATIVE (NEGATIVE); PROTEIN,URINE 30 mg/dL (NEGATIVE); URINE SPECIFIC GRAVITY 1.015
[2019-04-08 19:10] LABS: URINE AMPHETAMINES SCREEN NEGATIVE; URINE BARBITURATES SCREEN NEGATIVE; URINE BENZODIAZEPINES SCREEN NEGATIVE; URINE COCAINE SCREEN NEGATIVE; URINE MARIJUANA (THC) SCREEN NEGATIVE; URINE METHADONE SCREEN NEGATIVE; URINE PHENCYCLIDINE SCREEN NEGATIVE
[2019-04-08] MEDS ORDERED: DIAZEPAM 5 MG TABLET PO ONE ×2 (19:15→22:15)
--- NOTE | 2019-04-08 19:20 | EKG REPORT ---
SEVERITY:- NORMAL ECG - SINUS RHYTHM : Confirmed by: Gely White MD 08-Apr-2019 19:19:24
--- NOTE | 2019-04-08 19:20 | ER Document Report ---
Addendum entered and electronically signed by CLIFF GREEN MD 04/09/19 16:30: Discharge - Discharge Clinical Impression: Suicidal ideation Schizoaffective disorder Qualifiers: Schizoaffective disorder type: unspecified Qualified Code(s): F25.9 - Schizoaffective disorder, unspecified Condition: Stable Disposition: HOME, SELF-CARE Additional Instructions: If you experience worsening or a significant change in your symptoms, notify the physician immediately or return to the Emergency Department at any time for re- evaluation. You have been evaluated both medical and behavioral health teams and been deemed appropriate for discharge. You are recommended to decrease your psychiatric medication to your previous dosage of risperidone 2 mg twice daily until you can get in to an appointment to see your provider. DEPRESSION: Your evaluation reveals that you have mental depression. While symptoms may be vague, they often include disturbance of sleep, fatigue, loss of appetite, and general loss of interest in life. While depression may be a side effect of drugs, or a reaction to a major change in your life, many cases have no known cause. If depression is acute, and related to a major loss in your life, you can expect it to clear completely with time. If you have been depressed a long time, are prone to repeated bouts of depression or low mood, or have been thinking of suicide, get help. Depression can be treated with anti-depressant medication and counselling. Long-term depression will often take a few weeks to clear, even with appropriate medication. Follow-up care is important. SUICIDAL IDEATION: Suicidal ideation is a common medical term for thoughts about suicide, which may be as detailed as a formulated plan, without the suicidal act itself. Although most people who undergo suicidal ideation do not commit suicide, some go on to make suicide attempts. The range of suicidal ideation varies greatly f rom fleeting to detailed planning, role playing, and unsuccessful attempts. While thoughts about suicide are common, most people do not carry out serious actions to commit suicide. Based upon your evaluation and discussion with you, we do not believe you are currently at risk to act upon your thoughts of suicide. You have agreed to return to the Emergency Department, at any time, if you feel inclined to act upon your suicidal thoughts. FOLLOW-UP CARE: If you have been referred to a physician for follow-up care, call the physicians office for an appointment as you were instructed or within the next two days. Referrals: CHAPO FORD MD [Primary Care Provider] - Follow up as needed Addendum entered and electronically signed by SOBIA CASAS LCSWA 04/09/19 16:03: Discharge - Discharge Clinical Impression: Suicidal ideation Schizoaffective disorder Qualifiers: Schizoaffective disorder type: unspecified Qualified Code(s): F25.9 - Schizoaffective disorder, unspecified Condition: Stable Disposition: HOME, SELF-CARE Additional Instructions: You have been evaluated both medical and behavioral health teams and been deemed appropriate for discharge. You are recommended to decrease your psychiatric me dication to your previous dosage of risperidone 2 mg twice daily until you can get in to an appointment to see your provider. DEPRESSION: Your evaluation reveals that you have mental depression. While symptoms may be vague, they often include disturbance of sleep, fatigue, loss of appetite, an d general loss of interest in life. While depression may be a side effect of drugs, or a reaction to a major change in your life, many cases have no known cause. If depression is acute, and related to a major loss in your life, you can expect it to clear completely with time. If you have been depressed a long time, are prone to repeated bouts of depression or low mood, or have been thinking of suicide, get help. Depression can be treated with anti-depressant medication and counselling. Long-term depression will often take a few weeks to clear, even with appropriate medication. Follow-up care is important. SUICIDAL IDEATION: Suicidal ideation is a common medical term for thoughts about suicide, which may be as detailed as a formulated plan, without the suicidal act itself. Although most people who undergo suicidal ideation do not commit suicide, some go on to make suicide attempts. The range of suicidal ideation varies greatly from fleeting to detailed planning, role playing, and unsuccessful attempts. While thoughts about suicide are common, most people do not carry out serious actions to commit suicide. Based upon your evaluation and discussion with you, we do not believe you are currently at risk to act upon your thoughts of suicide. You have agreed to return to the Emergency Department, at any time, if you feel inclined to act upon your suicidal thoughts. FOLLOW-UP CARE: If you have been referred to a physician for follow-up care, call the ysicians office for an appointment as you were instructed or within the next two days. If you experience worsening or a significant change in your symptoms, notify the physician immediately or return to the Emergency Department at any time for re-evaluation. Referrals: CHAPO FORD MD [Primary Care Provider] - Follow up as needed Original Note: ED General - General Chief Complaint: Suicidal Ideation Stated Complaint: PSYCH EVAL Time Seen by Provider: 04/08/19 16:16 Primary Care Provider: CHAPO FORD MD [Primary Care Provider] - Follow up as needed Mode of Arrival: Ambulatory Notes: Patient is a 43-year-old female with past medical history of schizoaffective disorder who presents stating "I feel like I want to tear something apart". The patient reports that for the past several weeks she has had increasing auditory hallucinations, depression and thoughts of suicidality. States that she had a plan to crash her car intentionally today to kill herself with only and that stopped her was her being in the vehicle. The patient is taking risperidone 4 mg daily, states she is been compliant with her medications but does not feel like it is helping. She follows at [facility] for her mental health care. She denies any acute physical complaints. She does state that her face "does not feel like mine". Nothing seems to improve or worsen her symptoms. She states that she has had similar symptoms in the past with the exception of her face feeling abnormal. Regards her symptoms as being severe, constant. TRAVEL OUTSIDE OF THE [place] IN LAST 30 DAYS: No - Related Data Allergies/Adverse Reactions: amoxicillin [Amoxicillin] Allergy (Verified 12/29/18 10:01) Penicillins Allergy (Verified 12/29/18 10:01) Past Medical History - General Information source: Patient - Social History Smoking Status: Former Smoker Chew tobacco use (# tins/day): No Frequency of alcohol use: None Drug Abuse: None Lives with: Spouse/Significant other Family History: Reviewed & Not Pertinent Patient has suicidal ideation: Yes Patient has homicidal ideation: No - Past Medical History Cardiac Medical History: Reports: Hx Hypercholesterolemia Pulmonary Medical History: Reports: Hx Bronchitis Endocrine Medical History: Reports: Hx Hypothyroidism Renal/ Medical History: Denies: Hx Peritoneal Dialysis GI Medical History: Reports: Hx Irritable Bowel Musculoskeletal Medical History: Reports Hx Arthritis Psychiatric Medical History: Reports: Hx Bipolar Disorder, Hx Depression, Hx Schizophrenia Past Surgical History: Reports: Hx Tonsillectomy, Hx Tubal Ligation - Immunizations Immunizations up to date: No Hx Diphtheria, Pertussis, Tetanus Vaccination: No Review of Systems - Review of Systems Notes: Constitutional: Negative for fever. HENT: Negative for sore throat. Eyes: Negative for visual changes. Cardiovascular: Negative for chest pain. Respiratory: Negative for shortness of breath. Gastrointestinal: Negative for abdominal pain, vomiting or diarrhea. Genitourinary: Negative for dysuria. Musculoskeletal: Negative for back pain. Skin: Negative for rash. Neurological: Negative for headaches, weakness or numbness. 10 point ROS negative except as marked above and in HPI. Physical Exam - Vital signs Vitals: Temp Pulse Resp BP Pulse Ox 99 F 103 H 20 148/94 H 97 04/08/19 16:02 04/08/19 16:02 04/08/19 16:02 04/08/19 16:02 04/08/19 16:02 Interpretation: Hypertensive, Tachycardic Notes: PHYSICAL EXAMINATION: GENERAL: Appears highly anxious but is otherwise in no acute distress HEAD: Atraumatic, normocephalic. EYES: Pupils equal round and reactive to light, extraocular movements intact, sclera anicteric, conjunctiva are normal. ENT: nares patent, oropharynx clear without exudates. Moist mucous membranes. NECK: Normal range of motion, supple without lymphadenopathy LUNGS: Breath sounds clear to auscultation bilaterally and equal. No wheezes rales or rhonchi. HEART: Regular rate and rhythm without murmurs ABDOMEN: Soft, morbidly obese, nontender, normoactive bowel sounds. No guarding, no rebound. No masses appreciated. EXTREMITIES: Normal range of motion, no pitting or edema. No cyanosis. NEUROLOGICAL: No focal neurological deficits. Moves all extremities sponta neously and on command. PSYCH: Anxious, tearful, rocking back and forth in the bed SKIN: Warm, Dry, normal turgor, no rashes or lesions noted. Course - Re-evaluation Re-evalutation: 04/08/19 19:19 Patient presents with increasing auditory hallucinations, suicidal ideation, had a plan earlier today although unclear about the seriousness of that plan. The patient also states that her face is not feeling her own but there is no obvious physical exam findings to suggest infection, facial injury or stroke. Medical screening exam labs otherwise unremarkable. She is cleared for evaluation and disposition by [facility] in the morning. - Vital Signs Vital signs: Temp Pulse Resp BP Pulse Ox 99 F 103 H 20 148/94 H 97 04/08/19 16:02 04/08/19 16:02 04/08/19 16:02 04/08/19 16:02 04/08/19 16:02 - Laboratory Result Diagrams: 04/08/19 17:59 04/08/19 17:59 Laboratory results interpreted by me: 04/08/19 04/08/19 17:59 18:31 Urine Protein 30 H Urine Urobilinogen 2.0 H Urine Ascorbic Acid 40 H Salicylates < 1.0 L Acetaminophen < 10 L - EKG Interpretation by Me Additional EKG results interpreted by me: 04/08/19 19:18 Sinus rhythm, rate 74, no ST elevations or depressions. QTC 449. Discharge - Discharge Clinical Impression: Suicidal ideation Schizoaffective disorder Qualifiers: Schizoaffective disorder type: unspecified Qualified Code(s): F25.9 - Schizoaffective disorder, unspecified Condition: Stable Disposition: PSYCH HOSP/UNIT Referrals: CHAPO FORD MD [Primary Care Provider] - Follow up as needed
[2019-04-09 07:04] VITALS: BP 139/79
--- NOTE | 2019-04-09 09:30 | ER Document Report ---
Doctor's Note Notes: 04/09/19 09:30 43-year-old female with history of schizoaffective disorder with suicidal ideations and auditory hallucinations with a plan to crash her car. Vital signs are stable. Labs as recorded. Awaiting psychiatric disposition. 04/09/19 13:08 Psychology/psychiatry team has ordered a one-time dose of clonidine and Zyprexa. 04/09/19 16:28 Patient states she feels much improved and would like to go home. is at bedside and states that the patient is at her baseline and would like to take the patient home. The behavioral health team is seen and assessed the patient. They do not believe that the patient is a threat to herself or others at this time. I do not believe that the patient meets IVC criteria. They would like the patient to be discharged home and the patient will follow up with her primary psychiatrist at [facility]. They both promise to return immediately with any new or worrisome symptomatology. VSS.
[2019-04-09] MEDS ORDERED: OLANZAPINE 2.5 MG TABLET PO ONE (13:07)
[2019-04-09] MEDS ORDERED: CLONIDINE HCL 0.1 MG TABLET PO ONE (13:07)
== END 2019-04-09 17:00 | disposition home or self-care (01) ==
LOC: ER 15:54
DX: F25.9 Schizoaffective disorder, unspecified (principal); Z87.891 Personal history of nicotine dependence
CPT/HCPCS: 93005; 99285; 36415; 80307 ×4; 84703; 85025; 80053; 81001; 93010; J3490

== ENCOUNTER 2019-08-05 16:03 | Emergency (ER) | payer OTHER ==
[2019-08-05 16:10] VITALS: BP 141/91
[2019-08-05] MEDS ORDERED: KETOROLAC TROMETHAMINE 60 MG/2 ML SDV IM ONE (17:09)
--- NOTE | 2019-08-05 17:11 | ER Document Report ---
HPI - HPI Patient complains to provider of: chronic back pain Time Seen by Provider: 08/05/19 16:51 Onset: Just prior to arrival Onset/Duration: Persistent Quality of pain: Achy Severity: Severe Pain Level: 5 Context: This 44-year-old female with history of chronic back pain presents to the emergency department with back pain. 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 She reports her back is been acting up all week but today it started hurting more. She reports her right foot is numb. This is not new to her. This has happened in the past. Denies urinary bowel incontinence or retention. Denies fever vomiting diarrhea. Denies trauma. Does not remember lifting anything heavy. Associated Symptoms: None Exacerbated by: Movement Relieved by: Denies Similar symptoms previously: Yes Recently seen / treated by doctor: No - REPRODUCTIVE Reproductive: DENIES: : Past Medical History - Social History Smoking Status: Current Every Day Smoker Family History: Reviewed & Not Pertinent Patient has suicidal ideation: No Patient has homicidal ideation: No - Past Medical History Cardiac Medical History: Reports: Hx Hypercholesterolemia Pulmonary Medical History: Reports: Hx Bronchitis Endocrine Medical History: Reports: Hx Hypothyroidism Renal/ Medical History: Denies: Hx Peritoneal Dialysis GI Medical History: Reports: Hx Irritable Bowel Musculoskeletal Medical History: Reports Hx Arthritis Psychiatric Medical History: Reports: Hx Bipolar Disorder, Hx Depression, Hx Schizophrenia Past Surgical History: Reports: Hx Tonsillectomy, Hx Tubal Ligation - Immunizations Immunizations up to date: No Hx Diphtheria, Pertussis, Tetanus Vaccination: No Vertical Provider Document - CONSTITUTIONAL Agree With Documented VS: Yes Exam Limitations: No Limitations General Appearance: WD/WN, No Apparent Distress - INFECTION CONTROL TRAVEL OUTSIDE OF THE [place] IN LAST 30 DAYS: No - HEENT HEENT: Atraumatic, Normocephalic - NECK Neck: Normal Inspection, Supple. negative: Lymphadenopathy-Left, Lympha denopathy-Right - RESPIRATORY Respiratory: No Respiratory Distress - CARDIOVASCULAR Cardiovascular: Regular Rate - GI/ABDOMEN Gastrointestinal: Abdomen Soft, Abdomen Non-Tender - BACK Back: Normal Inspection - No obvious deformity good distal movement and sensation no erythema no warmth no swelling. Complains of midline tenderness radiating to her right buttock and going down her right posterior leg. No weakness - MUSCULOSKELETAL/EXTREMETIES Musculoskeletal/Extremeties: ROSANNE MAE - NEURO Level of Consciousness: Awake, Alert, Appropriate Motor/Sensory: No Motor Deficit - DERM Integumentary: Warm, Dry Adult Front & Back Diagram: 1 - Reports area tender to palpate pain radiates down her right buttock down her right leg with some numbness to her foot. 2 - Pain radiates down right buttock Course - Re-evaluation Re-evalutation: 08/05/19 17:18 This 44-year-old female presents emergency department with complaints of chronic back pain that is flared up. Denies urinary bowel incontinence or retention reports right foot does feel numb. Reports this has happened before. Denies fever vomiting diarrhea. Low suspicion for any meningitis, fracture, expanding/ruptured AAA, cauda eq uina syndrome, epidural mass lesion/abscess, herniated disc causing severe spinal stenosis, or other systemic infection at this time. Patient is aware that this condition can change from initial presentation and that she needs monitor symptoms closely for any acute changes. Patient was treated with Toradol and a prescription for muscle relaxers. She was instructed to take ibuprofen as indicated and follow-up with her primary care provider to discuss treatment plan she verbalized understanding to all instructions. Dictation of this chart was performed using voice recognition software; t herefore, there may be some unintended grammatical errors. - Vital Signs Vital signs: Temp Pulse Resp BP Pulse Ox 98.1 F 86 18 141/91 H 95 08/05/19 16:08 08/05/19 16:08 08/05/19 16:08 08/05/19 16:08 08/05/19 16:08 Discharge - Discharge Clinical Impression: Chronic back pain Condition: Stable Disposition: HOME, SELF-CARE Instructions: Chronic Back Pain ([facility]), Use of [id number] Ibuprofen ([facility]), Muscle Relaxers ([facility]), Toradol Injection ([facility]) Additional Instructions: *You have been evaluated for chronic low back pain *You have been given an injection of Toradol *Take flexeril as prescribed, take ibuprofen as indicated for pain *Rest/Ice packs as indicated *Follow up with a primary care provider within 1 week for recheck *Return to ED for worsening condition, changes, needs, concerns, Prescriptions: Cyclobenzaprine HCl [Flexeril 10 Mg Tablet] 10 mg PO TID #15 tablet Forms: Return to Work Referrals: CHAPO FORD MD [Primary Care Provider] - Follow up in 3-5 days
== END 2019-08-05 17:49 | disposition home or self-care (01) ==
LOC: ER 16:03
DX: G89.29 Other chronic pain (principal); M54.9 Dorsalgia, unspecified; R20.0 Anesthesia of skin; F17.200 Nicotine dependence, unspecified, uncomplicated
CPT/HCPCS: 99283; 96372; J1885

== ENCOUNTER → 2019-09-03 | Outpatient (CLI) | payer OTHER ==
[2019-09-03 09:45] LABS: ABSOLUTE EOSINOPHILS # (AUTO) 0.2 10^3/uL (0.0-0.6); ABSOLUTE LYMPHOCYTES (AUTO) 2.1 10^3/uL (0.5-4.7); ABSOLUTE MONOCYTES (AUTO) 0.3 10^3/uL (0.1-1.4); ABSOLUTE NEUT (AUTO) 2.3 10^3/uL (1.7-8.2); BASOPHILS % (AUTO) 0.5 % (0-2); EOSINOPHILS % (AUTO) 3.1 % (0-6); HEMOGLOBIN 12.8 g/dL (12.0-15.5); LYMPHOCYTES % (AUTO) 42.5 % (13-45); MEAN CORPUSCULAR HEMOGLOBIN 30.1 pg (27.0-33.4); MEAN CORPUSCULAR HGB CONC 33.6 g/dL (32.0-36.0); MEAN CORPUSCULAR VOLUME 90 fl (80-97); PLATELET COUNT 208 10^3/uL (150-450); RED BLOOD COUNT 4.23 10^6/uL (3.72-5.28); RED CELL DISTRIBUTION WIDTH 14.6 % (11.5-14.0); SEGMENTED NEUTROPHILS % (AUTO) 46.9 % (42-78); TOTAL CELLS COUNTED % (AUTO) 100 %
[2019-09-03 10:06] LABS: ALBUMIN 3.9 g/dL (3.5-5.0); ALKALINE PHOSPHATASE 96 U/L (38-126); ANION GAP 7 (5-19); ASPARTATE AMINO TRANSFERASE 26 U/L (14-36); BILIRUBIN,TOTAL 0.5 mg/dL (0.2-1.3); BLOOD UREA NITROGEN 10 mg/dL (7-20); CARBON DIOXIDE 29 mmol/L (22-30); CHLORIDE 103 mmol/L (98-107); CHOLESTEROL 211.97 mg/dL (0-200); GLUCOSE 99 mg/dL (75-110); POTASSIUM 4.4 mmol/L (3.6-5.0); TOTAL PROTEIN 7.2 g/dL (6.3-8.2); TRIGLYCERIDES 74 mg/dL (<150)
[2019-09-03 10:16] LABS: DIRECT LDL 148 mg/dL (<100)
== END ==
LOC: OD 08:59
PROVIDERS: ATTEND Psychiatry & Neurology Psychiatry
DX: Z00.00 Encounter for general adult medical examination without abnormal findings (principal); F10.20 Alcohol dependence, uncomplicated; F25.0 Schizoaffective disorder, bipolar type; Z79.899 Other long term (current) drug therapy
CPT/HCPCS: 36415; 80053; 80061; 82607; 84443; 85025

== ENCOUNTER → 2019-09-13 | Outpatient (CLI) | payer OTHER ==
--- NOTE | 2019-09-13 12:53 | RADIOLOGY REPORT (SQ) ---
EXAM DESCRIPTION: CHEST PA/LATERAL COMPLETED DATE/TIME: 09/13/2019 12:39 pm REASON FOR STUDY: PNEUMONIA, UNSPECIFIED ORGANISM COMPARISON: 10/01/2015. EXAM PARAMETERS: NUMBER OF VIEWS: two views TECHNIQUE: Digital Frontal and Lateral radiographic views of the chest acquired. RADIATION DOSE: NA LIMITATIONS: none FINDINGS: LUNGS AND PLEURA: No opacities, masses or pneumothorax. No pleural effusion. MEDIASTINUM AND HILAR STRUCTURES: No masses or contour abnormalities. HEART AND VASCULAR STRUCTURES: Heart normal size. No evidence for failure. BONES: No acute findings. HARDWARE: None in the chest. OTHER: No other significant finding. IMPRESSION: No focal consolidation or other evidence of acute cardiopulmonary process. TECHNICAL DOCUMENTATION: JOB ID: [id number] [employer]- All Rights Reserved Reading location - IP/workstation name: [email or web address]
== END ==
LOC: OD 12:23
PROVIDERS: ATTEND Internal Medicine
DX: J18.9 Pneumonia, unspecified organism (principal)
CPT/HCPCS: 71046

== ENCOUNTER 2019-12-28 09:30 | Emergency (ER) | payer SELFPAY ==
[2019-12-28 09:52] VITALS: BP 135/91
--- NOTE | 2019-12-28 09:54 | ER Document Report ---
HPI - HPI Patient complains to provider of: blood pressure concern Time Seen by Provider: 12/28/19 09:42 Onset: Just prior to arrival Onset/Duration: Sudden Quality of pain: No pain Pain Level: Denies Context: 44-year-old female presents from her mental health provider for concerns over her blood pressure. She was at the clinic for her mental health checkup and they told her her blood pressure was extremely high and she had come to the emergency department. She denies chest pain. Denies shortness of breath. Denies headache. Patient reports she just feels really tired. Denies fever vomiting diarrhea. Denies history of high blood pressure. Associated Symptoms: None. denies: Headache, Nausea, Shortness of breath Exacerbated by: Denies Relieved by: Denies Similar symptoms previously: No Recently seen / treated by doctor: No - CONSTITUTIONAL Constitutional: DENIES: Fever, Chills - EENT EENT: DENIES: Sore Throat, Ear Pain - NEURO Neurology: DENIES: Headache - REPRODUCTIVE Reproductive: DENIES: : Past Medical History - General Information source: Patient - Social History Smoking Status: Current Every Day Smoker Chew tobacco use (# tins/day): No Frequency of alcohol use: None Drug Abuse: None Family History: Reviewed & Not Pertinent Patient has suicidal ideation: No Patient has homicidal ideation: No - Past Medical History Cardiac Medical History: Reports: Hx Hypercholesterolemia Pulmonary Medical History: Reports: Hx Bronchitis Endocrine Medical History: Reports: Hx Hypothyroidism Renal/ Medical History: Denies: Hx Peritoneal Dialysis GI Medical History: Reports: Hx Irritable Bowel Musculoskeletal Medical History: Reports Hx Arthritis Psychiatric Medical History: Reports: Hx Bipolar Disorder, Hx Depression, Hx Schizophrenia Past Surgical History: Reports: Hx Tonsillectomy, Hx Tubal Ligation - Immunizations Immunizations up to date: No Hx Diphtheria, Pertussis, Tetanus Vaccination: No Vertical Provider Document - CONSTITUTIONAL Agree With Documented VS: Yes Exam Limitations: No Limitations General Appearance: WD/WN, No Apparent Distress - nontoxic looking - INFECTION CONTROL TRAVEL OUTSIDE OF THE [place] IN LAST 30 DAYS: Yes - HEENT HEENT: Atraumatic, Normal ENT Exam, Normocephalic. negative: Conjuctival Injection, Pharyngeal Erythema, Tympanic Membrane Bulging - NECK Neck: Normal Inspection, Supple. negative: Lymphadenopathy-Left, Lymphadenopathy-Right - RESPIRATORY Respiratory: Breath Sounds Normal, No Respiratory Distress - CARDIOVASCULAR Cardiovascular: Regular Rate, Regular Rhythm - GI/ABDOMEN Gastrointestinal: Abdomen Soft, Abdomen Non-Tender - BACK Back: negative: CVA Tenderness-Right, CVA Tenderness-Left - MUSCULOSKELETAL/EXTREMETIES Musculoskeletal/Extremeties: ROSANNE MAE - NEURO Level of Consciousness: Awake, Alert, Appropriate Motor/Sensory: No Motor Deficit - DERM Integumentary: Warm, Dry Course - Re-evaluation Re-evalutation: 12/28/19 10:03 44-year-old morbidly obese female presents with complaints of high blood pressure. She reports she was at her mental health provider and they took her blood pressure and told her it was extremely high and she needed to come to the emergency department. Blood pressure was checked twice here. First BP 129/86,second BP 135/91. Patient denies chest pain shortness of breath abdominal pain headache. She denies all symptoms just reports she is really tired. She also reports she is really hungry. Patient reports she was treated for blood pressure issue a long time ago but nothing recently. She reports she does have a provider Dr Wheeler, her next visit is February 06. She was instructed on the importance of monitoring her blood pressure she was also instructed to follow-up with Dr. Wheeler before February 06 for a complete physical and discussion of the blood pressure. Patient verbalized understanding to all instructions. - Vital Signs Vital signs: Temp Pulse Resp BP Pulse Ox 98.5 F 88 20 135/91 H 97 12/28/19 09:37 12/28/19 09:37 12/28/19 09:37 12/28/19 09:51 12/28/19 09:37 Discharge - Discharge Clinical Impression: high blood pressure concern Condition: Stable Disposition: HOME, SELF-CARE Instructions: High Blood Pressure ([facility]) Additional Instructions: *You have been evaluated for high blood pressure concern *We have taken your blood pressure twice here. The first blood pressure was 129/86 the second blood pressure was 135/91 *Follow-up with Dr. Wheeler. Contact his office for an appointment within 1 week *Return to ED for worsening condition, changes, needs, chest pain, headache, concerns Referrals: LAMIN WHEELER MD [Primary Care Provider] - Follow up as needed
== END 2019-12-28 10:00 | disposition home or self-care (01) ==
LOC: ER 09:30
DX: R03.0 Elevated blood-pressure reading, without diagnosis of hypertension (principal); F17.200 Nicotine dependence, unspecified, uncomplicated; E78.00 Pure hypercholesterolemia, unspecified; F31.9 Bipolar disorder, unspecified; F20.9 Schizophrenia, unspecified; Z98.51 Tubal ligation status
CPT/HCPCS: 99283

== ENCOUNTER 2020-03-26 23:24 | Emergency (ER) | payer SELFPAY ==
[2020-03-26] MEDS ORDERED: NORMAL SALINE 1000 ML 1,000 ML IV ONE (23:46)
--- NOTE | 2020-03-26 23:49 | ER Document Report ---
ED Medical Screen (RME) - General Stated Complaint: HEADACHE LIGHT HEADED Time Seen by Provider: 03/26/20 23:46 Primary Care Provider: LAMIN BRADY MD [Primary Care Provider] - Follow up as needed Information source: Patient Notes: Patient presents complaining of headache increased thirst and increased urination. Patient states that she has had nausea with vomiting x2 episodes today. Patient denies any abdominal tenderness. Patient states that her spouse is diabetic and she decided to check her blood sugar at home. Patient reports a blood sugar of 508 on Thursday. Patient states that she started taking her mother's metformin 1000 mg. Patient states she is taken 3000 mg of metformin today attempting to treat her diabetes. Patient does have a history of hypertension and schizoaffective disorder. I have greeted and performed a rapid initial assessment of this patient. A comprehensive ED assessment and evaluation of the patient, analysis of test results and completion of the medical decision making process will be conducted by additional ED providers. TRAVEL OUTSIDE OF THE [place] IN LAST 30 DAYS: Yes - Related Data Allergies/Adverse Reactions: amoxicillin [Amoxicillin] Allergy (Verified 12/28/19 09:43) Penicillins Allergy (Verified 12/28/19 09:43) Past Medical History - Past Medical History Cardiac Medical History: Reports: Hx Hypercholesterolemia Pulmonary Medical History: Reports: Hx Bronchitis Endocrine Medical History: Reports: Hx Hypothyroidism Renal/ Medical History: Denies: Hx Peritoneal Dialysis GI Medical History: Reports: Hx Irritable Bowel Musculoskeltal Medical History: Reports Hx Arthritis Psychiatric Medical History: Reports: Hx Bipolar Disorder, Hx Depression, Hx Schizophrenia Past Surgical History: Reports: Hx Tonsillectomy, Hx Tubal Ligation - Immunizations Immunizations up to date: No Hx Diphtheria, Pertussis, Tetanus Vaccination: No Physical Exam - General General appearance: Alert Notes: Appears to feel bad - Respiratory Respiratory status: Tachypnea - Back Back: Tender - Right lower back tenderness Doctor's Discharge - Discharge Referrals: LAMIN BRADY MD [Primary Care Provider] - Follow up as needed
[2020-03-27] MEDS ORDERED: ONDANSETRON HCL INJ/PF 4 MG/2 ML SDV IV ONE (00:28)
[2020-03-27] MEDS ORDERED: ONDANSETRON 4 MG TAB.RAPDIS PO ONE (02:22)
--- NOTE | 2020-03-27 02:30 | ER Document Report ---
ED Blood Sugar Problem - General Chief Complaint: High Blood Sugar Stated Complaint: HEADACHE LIGHT HEADED Time Seen by Provider: 03/26/20 23:46 Primary Care Provider: [facility] [Provider Group] - Follow up tomorrow [facility] [Provider Group] - Follow up tomorrow LAMIN BRADY MD [Primary Care Provider] - Follow up tomorrow Notes: Patient is a 44-year-old female who presents to the emergency department with high blood sugar readings. She checked her blood sugar and her blood sugar was up in the 500s. She took her mother's metformin today because her blood sugar was high. Patient also states that she has a headache, increased thirst, and increased urination. Patient had nausea and vomiting multiple times today. Denies any actual pain. States that she has not formally been diagnosed with diabetes. Patient has a medical history of hypertension and schizoaffective disorder. TRAVEL OUTSIDE OF THE [place] IN LAST 30 DAYS: Yes - Related Data Allergies/Adverse Reactions: amoxicillin [Amoxicillin] Allergy (Verified 12/28/19 09:43) Penicillins Allergy (Verified 12/28/19 09:43) Past Medical History - General Information source: Patient - Social History Smoking Status: Current Every Day Smoker Frequency of alcohol use: None Drug Abuse: None Family History: Reviewed & Not Pertinent Patient has homicidal ideation: No - Past Medical History Cardiac Medical History: Reports: Hx Hypercholesterolemia Pulmonary Medical History: Reports: Hx Bronchitis Endocrine Medical History: Reports: Hx Hypothyroidism Renal/ Medical History: Denies: Hx Peritoneal Dialysis GI Medical History: Reports: Hx Irritable Bowel Musculoskeletal Medical History: Reports Hx Arthritis Psychiatric Medical History: Reports: Hx Bipolar Disorder, Hx Depression, Hx Schizophrenia Past Surgical History: Reports: Hx Tonsillectomy, Hx Tubal Ligation - Immunizations Immunizations up to date: No Hx Diphtheria, Pertussis, Tetanus Vaccination: No Review of Systems - Review of Systems Notes: REVIEW OF SYSTEMS: CONSTITUTIONAL : Denies recent illness. Denies recent unintentional weight loss. Denies fever, chills, or sweats. EENT: Denies eye, ear, throat, or mouth pain, discharge, or symptoms. Denies nasal or sinus congestion. CARDIOVASCULAR: Denies chest pain. RESPIRATORY: Denies shortness of breath, cough, congestion, difficulty breathing, or wheezing. GASTROINTESTINAL: See HPI. GENITOURINARY: Denies difficulty urinating, burning, blood in urine, urgency or frequency. MUSCULOSKELETAL: Denies neck and back pain. Denies joint pain or swelling. SKIN: Denies rash, itchiness, or lesions HEMATOLOGIC : Denies easy bruising or bleeding. LYMPHATIC: Denies swollen, painful, enlarged glands. NEUROLOGICAL: Denies no numbness or tingling denies weakness. Denies headache. Denies altered mental status. Denies alteration in speech. PSYCHIATRIC: Denies stress, anxiety, alteration in sleep patterns, or depression. All other systems reviewed and negative. Physical Exam - Vital signs Vitals: Temp 97.4 F 03/26/20 23:44 - Notes Notes: PHYSICAL EXAMINATION: GENERAL: Appears morbidly obese, no acute distress. HEAD: Normocephalic, atraumatic. EYES: PERRL, conjunctiva normal, all extraocular movements intact, sclera nonicteric ENT: Dry mucous membranes. NECK: Supple, no noticeable swelling, redness, rash. Normal range of motion. LUNGS: Equal breath sounds bilaterally and clear to auscultation. No wheezes rales or rhonchi. CARDIOVASCULAR: S1-S2, regular rate, regular rhythm. Radial pulses 2+, normal. ABDOMEN: Normoactive bowel sounds. Soft, nontender, no guarding, no rebound tenderness, and no masses palpated. EXTREMITIES: Normal strength and range of motion, no pitting or edema. No cyanosis. NEUROLOGICAL: Moves all extremities upon command. Strength 5/5 in all extremities. PSYCH: Normal mood, normal affect. SKIN: Warm, dry. No rash, lesions, ulcerations noted. Normal skin turgor. Course - Re-evaluation Re-evalutation: 03/27/20 02:35 Patient has a delay in her lab draw, due to the nursing staff having hard time finding IV and drawing blood. 03/27/20 04:01 Staff still had a hard time starting an IV. Labs have been drawn by lab. Still awaiting results. I was able to say 20-gauge IV to the patient's left AC. Patient tolerated procedure well. 03/27/20 04:02 Blood gases unremarkable. Hematology is also unremarkable. 03/27/20 06:00 Repeat blood sugar was 316. Based off of patient's labs, ketones in her urine, and patient being lethargic, I highly suggested the patient be admitted to the hospital. She stated that she did not want to be admitted. I gave her long lengthy conversation about the risks of leaving without having her blood sugar under control. She states that she would like time to think about it. 03/27/20 06:51 Reevaluated the patient and she states that she is okay with being admitted. Called Dr. Brady. He states the patient does not need to be admitted and wants her to follow-up in the office. 03/27/20 08:41 Patient's repeat chemistry blood sugar is 311. This is not ideal, but stressed to the patient the importance of following up with Dr. Brady. I also referred her to the [facility] in [facility]. Please see social work order for close follow-up. Since Dr. Brady will not admit the patient, the patient will be discharged home. - Vital Signs Vital signs: Temp Pulse Resp BP Pulse Ox 97.4 F 93 23 H 128/92 H 100 03/26/20 23:44 03/26/20 23:48 03/27/20 07:01 03/27/20 07:01 03/27/20 07:01 - Laboratory Result Diagrams: 03/27/20 03:41 03/27/20 03:41 Laboratory results interpreted by me: 03/27/20 03/27/20 03/27/20 03:13 03:41 03:41 RDW 14.6 H Plt Count 104 L Sodium 129.8 L Chloride 94 L Carbon Dioxide 21 L Glucose 345 H POC Glucose Hemoglobin A1c % Urine Glucose (UA) >=500 H Urine Ketones 80 H 03/27/20 03/27/20 03/27/20 03:41 03:55 05:55 RDW Plt Count Sodium Chloride Carbon Dioxide Glucose POC Glucose 364 H 315 H Hemoglobin A1c % 12.9 H Urine Glucose (UA) Urine Ketones 03/27/20 08:06 RDW Plt Count Sodium Chloride Carbon Dioxide Glucose POC Glucose 311 H Hemoglobin A1c % Urine Glucose (UA) Urine Ketones - EKG Interpretation by Me Additional EKG results interpreted by me: 03/27/20 Sinus rhythm. Rate 81. MS 160; QRS 78; QT 356; QTc 424. No ST elevations noted. Discharge - Discharge Clinical Impression: New onset type 2 diabetes mellitus Condition: Stable Disposition: HOME, SELF-CARE Additional Instructions: YOU MUST FOLLOW-UP WITH A PRIMARY CARE DOCTOR FR[facility]ES[facility] (24-48 hours). You have diabetes and will need long term care administrator management of your blood sugar levels. The most important step is dietary changes. You need to avoid foods/drinks high in sugar and simple carbohydrates. Avoid sugared sodas, sweet tea, sugared coffee, white starch products (potatoes, pastas, rices, breads). You are being started on a medication today called metformin. This often causes abdominal cramping, nausea, and diarrhea in the first weeks of use. These symptoms do stop generally after 3-4 weeks. Please do not stop this medication due to these expected side effects. Please return to the ED immediately if you pass out, become confused, have persistent vomiting, or you have any new or worsening symptoms. A consult was placed with the lead case manager to help you find a primary care provider if you cannot follow-up with Dr. Brady. Prescriptions: Metformin HCl [Glucophage 500 mg Tablet] 500 mg PO BID #60 tablet Referrals: LAMIN BRADY MD [Primary Care Provider] - Follow up tomorrow [facility] [Provider Group] - Follow up tomorrow [facility] [Provider Group] - Follow up tomorrow
[2020-03-27 03:55] LABS: VENOUS BLOOD BASE EXCESS -3.7 mmol/L; VENOUS BLOOD HCO3 22.2 mmol/L (20-32); VENOUS BLOOD PCO2 42.9 mmHg (35-63); VENOUS BLOOD PH 7.33 (7.30-7.42)
[2020-03-27 03:59] LABS: APPEARANCE,URINE CLEAR; BILIRUBIN,URINE NEGATIVE (NEGATIVE); COLOR,URINE STRAW; GLUCOSE, URINE >=500 mg/dL (NEGATIVE); KETONES,URINE 80 mg/dL (NEGATIVE); LEUKOCYTE ESTERASE,URINE NEGATIVE (NEGATIVE); NITRITE,URINE NEGATIVE (NEGATIVE); PROTEIN,URINE NEGATIVE (NEGATIVE); URINE SPECIFIC GRAVITY 1.021; UROBILINOGEN,URINE NEGATIVE mg/dL (<2.0)
[2020-03-27 04:00] LABS: ABSOLUTE EOSINOPHILS # (AUTO) 0.1 10^3/uL (0.0-0.6); ABSOLUTE LYMPHOCYTES (AUTO) 1.8 10^3/uL (0.5-4.7); ABSOLUTE MONOCYTES (AUTO) 0.4 10^3/uL (0.1-1.4); ABSOLUTE NEUT (AUTO) 2.8 10^3/uL (1.7-8.2); BASOPHILS % (AUTO) 0.9 % (0-2); EOSINOPHILS % (AUTO) 1.6 % (0-6); HEMATOCRIT 40.6 % (36.0-47.0); HEMOGLOBIN 13.5 g/dL (12.0-15.5); LYMPHOCYTES % (AUTO) 34.9 % (13-45); MEAN CORPUSCULAR HEMOGLOBIN 29.1 pg (27.0-33.4); MEAN CORPUSCULAR HGB CONC 33.4 g/dL (32.0-36.0); MEAN CORPUSCULAR VOLUME 87 fl (80-97); MONOCYTES % (AUTO) 7.7 % (3-13); PLATELET COUNT 104 10^3/uL (150-450); RED BLOOD COUNT 4.66 10^6/uL (3.72-5.28); RED CELL DISTRIBUTION WIDTH 14.6 % (11.5-14.0); SEGMENTED NEUTROPHILS % (AUTO) 54.9 % (42-78); TOTAL CELLS COUNTED % (AUTO) 100 %; WHITE BLOOD COUNT 5.1 10^3/uL (4.0-10.5)
[2020-03-27 04:19] LABS: ALBUMIN 3.8 g/dL (3.5-5.0); ALKALINE PHOSPHATASE 105 U/L (38-126); ANION GAP 15 (5-19); ASPARTATE AMINO TRANSFERASE 31 U/L (14-36); BILIRUBIN,TOTAL 0.8 mg/dL (0.2-1.3); BLOOD UREA NITROGEN 16 mg/dL (7-20); CALCIUM 8.9 mg/dL (8.4-10.2); CARBON DIOXIDE 21 mmol/L (22-30); CHLORIDE 94 mmol/L (98-107); GLUCOSE 345 mg/dL (75-110); POTASSIUM 3.6 mmol/L (3.6-5.0)
[2020-03-27 04:20] LABS: BILIRUBIN,DIRECT 0.1 mg/dL (0.0-0.4); TOTAL PROTEIN 6.8 g/dL (6.3-8.2)
[2020-03-27] MEDS ORDERED: NORMAL SALINE 1000 ML 1,000 ML IV ONE (04:39)
[2020-03-27] MEDS ORDERED: POTASSIUM CHLORIDE 10 MEQ TABLET.ER PO ONE (06:12)
[2020-03-27] MEDS ORDERED: INSULIN REG, HUMAN 100 UNIT/ML 3 ML VIAL (PYX) SUBCUT ONE (06:13)
[2020-03-27 08:53] VITALS: BP 118/82
--- NOTE | 2020-03-27 09:34 | EKG REPORT ---
SEVERITY:- ABNORMAL ECG - SINUS RHYTHM ABNRM R PROG, CONSIDER ASMI OR LEAD PLACEMENT BORDERLINE T ABNORMALITIES, DIFFUSE LEADS : Confirmed by: Gely White MD 27-Mar-2020 09:33:32
== END 2020-03-27 09:00 | disposition home or self-care (01) ==
LOC: ER 23:24
DX: E11.9 Type 2 diabetes mellitus without complications (principal); R42 Dizziness and giddiness; Z88.0 Allergy status to penicillin; F17.200 Nicotine dependence, unspecified, uncomplicated; E78.00 Pure hypercholesterolemia, unspecified
CPT/HCPCS: 93005; 99285; 96360; 96361; 36415; 82962; 83690; 83735; 84703; 85025; 80053; 81001; 84484; 83036; 82803; 93010; S0119; J1815; J7030

== ENCOUNTER 2020-03-27 18:05 | Emergency (ER) | payer SELFPAY ==
[2020-03-27] MEDS ORDERED: NORMAL SALINE 1000 ML 1,000 ML IV PRN (18:54)
--- NOTE | 2020-03-27 18:57 | ER Document Report ---
ED Medical Screen (RME) - General Chief Complaint: Blood Pressure Problem Stated Complaint: BLOOD SUGAR PROBLEMS Time Seen by Provider: 03/27/20 18:53 Primary Care Provider: LAMIN BRADY MD [Primary Care Provider] - Follow up as needed Mode of Arrival: Ambulatory Information source: Patient Notes: 44-year-old female presented to ED for complaint of continued elevated blood sugar. She states she came yesterday and never been diagnosed with diabetes until she was in here last night and discharged this morning. She states her sugars were very high during the night and they started on metformin 500 mg. She states she has been taking metformin thousand milligrams a day from her mother's prescription and has been having blood sugars in the 40s and 500s on that. She states she is not been back to see Dr. Brady because she owes him money and he would not see her so she is supposed to go to the [facility]. I have greeted and performed a rapid initial assessment of this patient. A comprehensive ED assessment and evaluation of the patient, analysis of test results and completion of medical decision making process will be conducted by an additional ED providers. TRAVEL OUTSIDE OF THE [place] IN LAST 30 DAYS: Yes - Related Data Allergies/Adverse Reactions: amoxicillin [Amoxicillin] Allergy (Verified 12/28/19 09:43) Penicillins Allergy (Verified 12/28/19 09:43) Past Medical History - Past Medical History Cardiac Medical History: Reports: Hx Hypercholesterolemia Pulmonary Medical History: Reports: Hx Bronchitis Endocrine Medical History: Reports: Hx Hypothyroidism Renal/ Medical History: Denies: Hx Peritoneal Dialysis GI Medical History: Reports: Hx Irritable Bowel Musculoskeltal Medical History: Reports Hx Arthritis Psychiatric Medical History: Reports: Hx Bipolar Disorder, Hx Depression, Hx Schizophrenia Past Surgical History: Reports: Hx Tonsillectomy, Hx Tubal Ligation - Immunizations Immunizations up to date: No Hx Diphtheria, Pertussis, Tetanus Vaccination: No Physical Exam - Vital signs Vitals: Temp Pulse Resp BP Pulse Ox 98.6 F 80 14 130/80 H 95 03/27/20 18:22 03/27/20 18:22 03/27/20 18:22 03/27/20 18:22 03/27/20 18:22 Course - Vital Signs Vital signs: Temp Pulse Resp BP Pulse Ox 98.6 F 80 14 130/80 H 95 03/27/20 18:22 03/27/20 18:22 03/27/20 18:22 03/27/20 18:22 03/27/20 18:22 Doctor's Discharge - Discharge Referrals: LAMIN BRADY MD [Primary Care Provider] - Follow up as needed
[2020-03-27 20:44] LABS: APPEARANCE,URINE CLEAR; BILIRUBIN,URINE NEGATIVE (NEGATIVE); COLOR,URINE YELLOW; GLUCOSE, URINE >=500 mg/dL (NEGATIVE); KETONES,URINE 80 mg/dL (NEGATIVE); LEUKOCYTE ESTERASE,URINE NEGATIVE (NEGATIVE); NITRITE,URINE NEGATIVE (NEGATIVE); PROTEIN,URINE NEGATIVE (NEGATIVE); URINE SPECIFIC GRAVITY 1.017; UROBILINOGEN,URINE NEGATIVE mg/dL (<2.0)
[2020-03-27 20:49] LABS: ADD MANUAL MICROSCOPIC YES
[2020-03-27 21:53] LABS: ALBUMIN 3.9 g/dL (3.5-5.0); ALKALINE PHOSPHATASE 97 U/L (38-126); ANION GAP 13 (5-19); ASPARTATE AMINO TRANSFERASE 32 U/L (14-36); BILIRUBIN,DIRECT 0.1 mg/dL (0.0-0.4); BILIRUBIN,TOTAL 0.9 mg/dL (0.2-1.3); BLOOD UREA NITROGEN 15 mg/dL (7-20); CALCIUM 9.7 mg/dL (8.4-10.2); CARBON DIOXIDE 23 mmol/L (22-30); CHLORIDE 95 mmol/L (98-107); GLUCOSE 274 mg/dL (75-110); TOTAL PROTEIN 6.9 g/dL (6.3-8.2)
[2020-03-28 03:12] LABS: ABSOLUTE EOSINOPHILS # (AUTO) 0.1 10^3/uL (0.0-0.6); ABSOLUTE LYMPHOCYTES (AUTO) 1.8 10^3/uL (0.5-4.7); ABSOLUTE MONOCYTES (AUTO) 0.3 10^3/uL (0.1-1.4); ABSOLUTE NEUT (AUTO) 2.7 10^3/uL (1.7-8.2); BASOPHILS % (AUTO) 0.5 % (0-2); EOSINOPHILS % (AUTO) 2.6 % (0-6); HEMATOCRIT 39.6 % (36.0-47.0); HEMOGLOBIN 13.3 g/dL (12.0-15.5); LYMPHOCYTES % (AUTO) 36.9 % (13-45); MEAN CORPUSCULAR HEMOGLOBIN 29.9 pg (27.0-33.4); MEAN CORPUSCULAR HGB CONC 33.6 g/dL (32.0-36.0); MEAN CORPUSCULAR VOLUME 89 fl (80-97); PLATELET COUNT 139 10^3/uL (150-450); RED BLOOD COUNT 4.45 10^6/uL (3.72-5.28); RED CELL DISTRIBUTION WIDTH 14.7 % (11.5-14.0); TOTAL CELLS COUNTED % (AUTO) 100 %; WHITE BLOOD COUNT 4.9 10^3/uL (4.0-10.5)
[2020-03-28 03:17] LABS: VENOUS BLOOD HCO3 22.9 mmol/L (20-32); VENOUS BLOOD PCO2 44.5 mmHg (35-63); VENOUS BLOOD PH 7.33 (7.30-7.42)
--- NOTE | 2020-03-28 03:27 | ER Document Report ---
ED General - General Chief Complaint: High Blood Sugar Stated Complaint: BLOOD SUGAR PROBLEMS Time Seen by Provider: 03/27/20 18:53 Primary Care Provider: [facility] [Provider Group] - Follow up as needed LAMIN BRADY MD [Primary Care Provider] - Follow up as needed Mode of Arrival: Ambulatory TRAVEL OUTSIDE OF THE [place] IN LAST 30 DAYS: Yes - HPI Notes: 44-year-old female history of new onset diabetes diagnosed in the ED less than 24 hours prior to this evaluation presents after being called back to ED to recheck labs. Patient had come to ED day before for lightheadedness and few episodes of vomiting and having checked her blood sugar with mother's glucometer and found his sugar to be 500. Patient started using her mother's metformin. Patient had borderline labs on that visit and I wanted them to be rechecked so I had patient return to ED. Patient has felt improved since being discharged. Has not had any more vomiting and does not feel lightheaded anymore. Patient denies any fever, abdominal pain, confusion, shortness of breath, dizziness, syncope - Related Data Allergies/Adverse Reactions: amoxicillin [Amoxicillin] Allergy (Verified 12/28/19 09:43) Penicillins Allergy (Verified 12/28/19 09:43) Home Medications: pt non compliant with medications states she cannot afford them Past Medical History - General Information source: Patient - Social History Smoking Status: Current Every Day Smoker Chew tobacco use (# tins/day): No Frequency of alcohol use: None Drug Abuse: None Family History: Reviewed & Not Pertinent Patient has homicidal ideation: No - Past Medical History Cardiac Medical History: Reports: Hx Hypercholesterolemia Pulmonary Medical History: Reports: Hx Bronchitis Endocrine Medical History: Reports: Hx Hypothyroidism Renal/ Medical History: Denies: Hx Peritoneal Dialysis GI Medical History: Reports: Hx Irritable Bowel Musculoskeletal Medical History: Reports Hx Arthritis Psychiatric Medical History: Reports: Hx Bipolar Disorder, Hx Depression, Hx Schizophrenia Past Surgical History: Reports: Hx Tonsillectomy, Hx Tubal Ligation - Immunizations Immunizations up to date: No Hx Diphtheria, Pertussis, Tetanus Vaccination: No Review of Systems - Review of Systems Notes: REVIEW OF SYSTEMS: CONSTITUTIONAL : Denies fever, chills, or sweats. EENT: Denies recent cold/sinus symptoms, denies throat pain CARDIOVASCULAR: Denies chest pain, MYCHAL RESPIRATORY: Denies cough, denies shortness of breath. GASTROINTESTINAL: Denies abdominal pain, nausea/vomiting. GENITOURINARY: Denies difficulty urinating, painful urination. FEMALE GENITOURINARY: Denies abnormal vaginal bleeding, vaginal discharge. MUSCULOSKELETAL: Denies neck pain, back pain. SKIN: Denies rash or skin lesions. HEMATOLOGIC : Denies easy bruising or bleeding. LYMPHATIC: Denies swollen, enlarged glands. NEUROLOGICAL: Denies headache, denies change in gait. PSYCHIATRIC: Denies anxiety or stress or depression. Physical Exam - Vital signs Vitals: Temp Pulse Resp BP Pulse Ox 98.6 F 80 14 130/80 H 95 03/27/20 18:22 03/27/20 18:22 03/27/20 18:22 03/27/20 18:22 03/27/20 18:22 - Notes Notes: PHYSICAL EXAMINATION: GENERAL: Well-appearing, well-nourished and in no acute distress. HEAD: Atraumatic, normocephalic. EYES: Pupils equal round and appropriate constriction, sclera anicteric, conjunctiva are normal. ENT: nares patent, moist mucous membranes. NECK: Normal range of motion, supple without lymphadenopathy LUNGS: Breath sounds clear to auscultation bilaterally and equal. No wheezes rales or rhonchi. HEART: Regular rate and rhythm without murmurs ABDOMEN: Soft, nontender, no guarding, no masses, no CVAT EXTREMITIES: Normal range of motion, no pitting or edema. No cyanosis. NEUROLOGICAL: Awake, alert, conversing appropriately, moves all extremities spontaneously. PSYCH: Normal mood, normal affect. SKIN: Warm, Dry, normal turgor, no rashes or lesions noted. Course - Re-evaluation Re-evalutation: 03/28/20 07:02 Patient recalled to ED by myself to have labs rechecked to make sure that patient was not going into DKA. Recheck the labs which were reassuring. Patient's glucose remains improved from her initial measurements. Normal anion gap and pH. No more vomiting and tolerating p.o. Patient has plan to have her son go to the pharmacy to cupola operator her metformin today. Also will have discussion today with Dr. Brady's hr receptionist to start payment plan for money she owes him and if she does that she can see him in the meantime. Gave patient extensive return to ED precautions which she demonstrated understanding of and had extensive discussion regarding diabetes and its management which she also showed understanding of. - Vital Signs Vital signs: Temp Pulse Resp BP Pulse Ox 98.0 F 77 22 H 132/82 H 98 03/28/20 04:08 03/28/20 04:08 03/28/20 04:08 03/28/20 04:08 03/28/20 04:08 - Laboratory Result Diagrams: 03/28/20 02:50 03/27/20 21:19 Laboratory results interpreted by me: 03/27/20 03/27/20 03/27/20 19:03 20:21 21:19 RDW Plt Count Sodium 130.7 L Chloride 95 L Glucose 274 H POC Glucose 271 H Urine Glucose (UA) >=500 H Urine Ketones 80 H 03/28/20 02:50 RDW 14.7 H Plt Count 139 L Sodium Chloride Glucose POC Glucose Urine Glucose (UA) Urine Ketones Discharge - Discharge Clinical Impression: Hyperglycemia Condition: Stable Disposition: HOME, SELF-CARE Additional Instructions: Diabetes You have an abnormally high blood sugar, suspicious for diabetes. You will be scheduled for further evaluation. It's very important that you follow through. Uncontrolled high blood sugar leads to early heart disease, strokes, nerve damage, eye damage, and kidney damage. All diabetics should follow a diet designed to control the blood sugar. Overweight diabetics should exercise regularly and lose weight. If this is not sufficient to control the blood sugar, pills or insulin shots are necessary. Younger people who develop diabetes almost always require insulin daily. Home testing of blood sugars or urine sugar is required. Diabetic teaching is available to help you figure insulin doses and monitor the blood sugar. Call the physician if there is faintness, excess sleepiness, or very rapid breathing. If hypoglycemia (LOW blood sugar) develops, symptoms are shakiness, weakness, sweating, and confusion. In this case, you should eat or drink something with sugar at once. It is extremely important that you cupola operator your metformin prescription today and call your primary doctor today to schedule appointment for follow-up. If you have any return of vomiting, dizziness, confusion, abdominal pain, fainting, chest pain, trouble breathing, or any other worsening or alarming symptoms return to the emergency department immediately. Referrals: LAMIN BRADY MD [Primary Care Provider] - Follow up as needed [facility] [Provider Group] - Follow up as needed
[2020-03-28 04:08] VITALS: BP 132/82
== END 2020-03-28 04:08 | disposition home or self-care (01) ==
LOC: ER 18:05
DX: R73.9 Hyperglycemia, unspecified (principal); F17.200 Nicotine dependence, unspecified, uncomplicated; E78.00 Pure hypercholesterolemia, unspecified; Z88.0 Allergy status to penicillin; Z98.51 Tubal ligation status
CPT/HCPCS: 99284; 96360; 36415; 82962; 83690; 84703; 87070; 81001; 82803; J7030

== ENCOUNTER 2020-05-23 20:03 | Emergency (ER) | payer SELFPAY ==
[2020-05-23 20:22] VITALS: BP 143/86
[2020-05-23] MEDS ORDERED: SULFAMETHOXAZOLE/TRIMETHOPRIM 800-160 MG TABLET PO ONE (21:51)
--- NOTE | 2020-05-23 21:56 | ER Document Report ---
ED General - General Chief Complaint: Skin Problem Stated Complaint: POSSIBLE SPIDER BITE Primary Care Provider: LAMIN BRADY MD [Primary Care Provider] - Follow up as needed Notes: Patient is a 44-year-old -[place] female history of diabetes and schizoaffective disorder presents emergency department chief complaint of weakness, increased warmth and hot sensation of the right lateral abdomen. States for the past 5 days ago. States that she believes subsequent to bite insect. States has been using several combination [id number] occasions without any improvement. She denies any drainage from the site. States that the redness continues to grow despite her home efforts. She denies any drainage or fever. No nausea vomiting diarrhea, chills or night sweats. TRAVEL OUTSIDE OF THE [place] IN LAST 30 DAYS: Yes - Related Data Allergies/Adverse Reactions: amoxicillin [Amoxicillin] Allergy (Verified 05/23/20 21:47) Penicillins Allergy (Verified 05/23/20 21:47) Past Medical History - Social History Smoking Status: Unknown if Ever Smoked Family History: Reviewed & Not Pertinent Patient has homicidal ideation: No - Past Medical History Cardiac Medical History: Reports: Hx Hypercholesterolemia Pulmonary Medical History: Reports: Hx Bronchitis Endocrine Medical History: Reports: Hx Hypothyroidism Renal/ Medical History: Denies: Hx Peritoneal Dialysis GI Medical History: Reports: Hx Irritable Bowel Musculoskeletal Medical History: Reports Hx Arthritis Psychiatric Medical History: Reports: Hx Bipolar Disorder, Hx Depression, Hx Schizophrenia Past Surgical History: Reports: Hx Tonsillectomy, Hx Tubal Ligation - Immunizations Immunizations up to date: No Hx Diphtheria, Pertussis, Tetanus Vaccination: No Review of Systems - Review of Systems Constitutional: denies: Fever EENT: denies: Difficulty swallowing Cardiovascular: denies: Chest pain Respiratory: denies: Short of breath Gastrointestinal: denies: Abdominal pain, Diarrhea, Nausea, Vomiting Genitourinary: denies: Pain Female Genitourinary: No symptoms reported Musculoskeletal: No symptoms reported Skin: Change in color Hematologic/Lymphatic: denies: Easy bleeding Neurological/Psychological: denies: Headaches Physical Exam - Vital signs Vitals: Temp Pulse Resp BP Pulse Ox 99.3 F 106 H 15 143/86 H 97 05/23/20 20:19 05/23/20 20:19 05/23/20 20:19 05/23/20 20:19 05/23/20 20:19 - General General appearance: Appears well, Alert In distress: None - Respiratory Respiratory status: No respiratory distress Chest status: Nontender Breath sounds: Normal Chest palpation: Normal - Cardiovascular Rhythm: Regular Heart sounds: Normal auscultation - Abdominal Inspection: Morbidly Obese Distension: No distension Bowel sounds: Normal Tenderness: Tender - Area of cellulitis right lower quadrant Notes: Moderate area of erythema and induration of the right lower quadrant. Approximately 8 cm in diameter. No fluctuance. No pointing. No proximal streaking. - Neurological Neuro grossly intact: Yes Cognition: Normal Orientation: AAOx4 - Psychological Associated symptoms: Normal affect, Normal mood - Skin Skin Color: Other - Except area described above Course - Re-evaluation Re-evalutation: 05/23/20 21:55 Area appears most consistent with cellulitis. Patient is diabetic but reports well-controlled blood sugars. Will initiate oral therapy with Bactrim twice daily. She will follow-up in 2 to 3 days for wound recheck and reevaluation. Advised she return here or any ER immediately with any new, persistent or worsening symptoms. She verbalized understood and agreed. - Vital Signs Vital signs: Temp Pulse Resp BP Pulse Ox 99.3 F 106 H 15 143/86 H 97 05/23/20 21:46 05/23/20 20:19 05/23/20 20:19 05/23/20 20:19 05/23/20 20:19 Discharge - Discharge Clinical Impression: Cellulitis Qualifiers: Site of cellulitis: unspecified site Qualified Code(s): L03.90 - Cellulitis, unspecified Condition: Stable Disposition: HOME, SELF-CARE Instructions: Cellulitis ([facility]) Additional Instructions: Follow-up with your regular doctor in 2 to 3 days for reevaluation. Return here or any ER immediately with any new, persistent or worsening symptoms. Prescriptions: Sulfamethoxazole/Trimethoprim [Bactrim Ds Tablet] 1 each PO BID #19 tablet Referrals: LAMIN BRADY MD [Primary Care Provider] - Follow up as needed
== END 2020-05-23 22:01 | disposition home or self-care (01) ==
LOC: ER 20:03
DX: L03.90 Cellulitis, unspecified (principal); E66.01 Morbid (severe) obesity due to excess calories; E78.00 Pure hypercholesterolemia, unspecified; Z88.0 Allergy status to penicillin
CPT/HCPCS: 99281